=== PATIENT | female | born 1955 | race Caucasian/White ===

== ENCOUNTER 2021-04-05 10:11 | Outpatient (CLI) | payer MEDICARE, MEDICAID ==
[~2021-04-05 10:11] MED LIST: ALBU18HF2 PO; ALPR1TAB2 PO; BUDE10.2 IH; ESOM40CA PO; FURO20TA4 PO; PARO30TA73 PO
== END 2021-04-05 23:59 | disposition home or self-care (01) ==
LOC: RT 10:11
PROVIDERS: ATTEND Nurse Practitioner Family
DX: J44.9 Chronic obstructive pulmonary disease, unspecified (principal); Z72.0 Tobacco use
CPT/HCPCS: 94010; 94727; 94729

== ENCOUNTER 2021-07-04 11:40 | Inpatient (IN) | payer BC, MEDICAID ==
[~2021-07-04] VITALS: Ht 154.9 cm; Wt 109.1 kg
[2021-07-04] MEDS ORDERED: acetaminophen 325mg tablet PO STA (12:09)
[2021-07-04 13:09] LABS: BASOPHILS % (AUTO) 0.4 % (0-1); EOSINOPHILS % (AUTO) 0.1 % (0-6); HEMATOCRIT 41.7 % (35.0-45.0); HEMOGLOBIN 14.1 g/dl (12.0-16.0); LYMPHOCYTES # (AUTO) 1.4 X10'3 (1.1-4.8); LYMPHOCYTES % (AUTO) 12.6 % (21-51); MEAN CORPUSCULAR HGB CONC 33.9 g/dL (33.0-36.5); MEAN CORPUSCULAR VOLUME 82.6 FL (78-98); MEAN PLATELET VOLUME 7.7 FL (7.4-10.4); MONOCYTES # (AUTO) 1.4 X10'3 (0-0.9); MONOCYTES % (AUTO) 13.1 % (2-12); NEUTROPHILS # (AUTO) 8.1 X10'3 (1.8-7.7); NEUTROPHILS % (AUTO) 73.8 % (42-75); PLATELET COUNT 336 X10'3 (140-440); RED BLOOD COUNT 5.04 X10'6 (4.20-5.60); RED CELL DISTRIBUTION WIDTH 15.2 % (11.5-14.5); WHITE BLOOD COUNT 10.9 X10'3 (4.5-11.0)
[2021-07-04 13:10] LABS: ALANINE AMINOTRANSFERASE 27 U/L (12-78); ALBUMIN 2.9 G/DL (3.4-5.0); ALBUMIN/GLOBULIN RATIO 0.5 (1.1-1.5); ALKALINE PHOSPHATASE 113 IU/L (46-116); ANION GAP 11 (8-16); ASPARTATE AMINO TRANSFERASE 23 U/L (10-37); BILIRUBIN,TOTAL 0.9 MG/DL (0.1-1.0); BLOOD UREA NITROGEN 12 MG/DL (7-18); BUN/CREATININE RATIO 12.2 (6.6-38.0); CALCIUM 8.8 MG/DL (8.5-10.1); CHLORIDE 102 MMOL/L (99-107); CREATININE 0.98 MG/DL (0.40-0.90); GLUCOSE 122 MG/DL (70-104); POTASSIUM 3.5 MMOL/L (3.5-5.1); SODIUM 138 MMOL/L (135-145); TOTAL CARBON DIOXIDE 25.5 MMOL/L (24-32); TOTAL PROTEIN 8.8 G/DL (6.4-8.2); eGFR 57 ML/MIN
[2021-07-04] MEDS ORDERED: azithromycin/NS 500mg/250ml 250 ML IV ONE (13:25)
[2021-07-04] MEDS ORDERED: dexamethasone sod phosphate 10mg/ml inj IV STA (13:25)
[2021-07-04] MEDS ORDERED: CefTRIAXone 2gm/D5W 50ml BAG 50 ML IV ONE (13:25)
[2021-07-04] MEDS ORDERED: iohexol 350MG/ML 100ml bottle IV ONE (13:30)
[2021-07-04] MEDS ORDERED: normal saline 1000ML IV soln IVB ONE (14:35)
[2021-07-04] MEDS ORDERED: ipratropium/albuterol 3ml nebule NEB ONE (14:50)
[2021-07-04] MEDS ORDERED: methylPREDNISolone sod succ 125mg/2ml vial IV ONE (14:50)
[2021-07-04] MEDS ORDERED: ipratropium/albuterol 3ml nebule NEB PRN (15:05)
[2021-07-04] MEDS ORDERED: acetaminophen 325mg tablet PO PRN ×2 (15:05)
[2021-07-04] MEDS ORDERED: mag hydrox/Alum hydrox/simeth 30ml oral suspension PO PRN (15:05)
[2021-07-04] MEDS ORDERED: magnesium 2GM in 50ml NS 50 ML IV PRN (15:05)
[2021-07-04] MEDS ORDERED: potassium Cl 40MEQ/1/2NS 520ml 520 ML IV PRN ×2 (15:05)
[2021-07-04] MEDS ORDERED: ondansetron/PF 4mg/2ml inj IV PRN (15:05)
[2021-07-04] MEDS ORDERED: potassium Cl 20 mEq SR tablet PO PRN (15:05)
[2021-07-04] MEDS ORDERED: magnesium Cl slow-release 64mg tablet PO PRN (15:05)
[2021-07-04] MEDS ORDERED: magnesium hydroxide 30ml (MOM) UD suspension PO PRN (15:05)
[2021-07-04] MEDS ORDERED: magnesium 4gm in 100ml NS 100 ML IV PRN (15:05)
[2021-07-04] MEDS ORDERED: PARO30TA4 PO (15:11)
[2021-07-04] MEDS ORDERED: ALPR1TAB7 PO (15:11)
[2021-07-04] MEDS: normal saline 1000ml 1,000 ML IV SCH (15:15)
[2021-07-04] MEDS ORDERED: ALBUTEROL INHALER 1 PUFF/90 MCG INHALER IH ONE (16:00)
--- NOTE | 2021-07-04 18:30 | NUR ---
ASSUMED CARE OF PT. PT SLEEPING. EASILY AWAKENS WHEN I SPEAK TO HER.
[2021-07-04] MEDS: ipratropium/albuterol 3ml nebule NEB SCH ×2 (19:45→22:49)
--- NOTE | 2021-07-04 19:49 | NUR ---
RT AT BEDSIDE GIVING PT BREATHING TX
[2021-07-04] MEDS: methylPREDNISolone sod succ 125mg/2ml vial IV SCH (19:54)
[2021-07-04] MEDS: docusate sod 100mg capsule PO SCH (19:58)
[2021-07-04] MEDS: K and/or MAG REPLACEMENT MC SCH (19:59)
--- NOTE | 2021-07-04 20:00 | NUR ---
PT EATING DINNER AND REQUESTS ICE FOR HER WATER
[2021-07-04] MEDS ORDERED: temazepam 15mg capsule PO PRN (21:00)
--- NOTE | 2021-07-04 22:45 | NUR ---
RT AT BEDSIDE GIVING PT BREATHING TX
[2021-07-05] MEDS: normal saline 1000ml 1,000 ML IV SCH ×2 (01:06→11:05)
--- NOTE | 2021-07-05 01:08 | NUR ---
NOTICED SUDDEN ONSET INCREASE IN HEART RATE TO 155. SUSPICIOUS FOR AFIB W/ RVR. ORDERED EKG STAT. PAGED DR MILLER. PT WAS SLEEPING WHEN HEART RATE SUDDENLY INCREASED. WOKE PT UP, PT SPOKE TO ME COHERENTLY. HEART RATE REMAINS ABOVE 140S. BP STABLE.
--- NOTE | 2021-07-05 01:10 | NUR ---
SPOKE TO DR MILLER CONCERNING PT'S SUDDEN CHANGE IN HEART RATE. EKG IS COMPLETED. DR MILLER STATED THAT "THERE IS NO REASON TO BE CONCERNED". DR TSRINGER HAS REVIEWED PT'S NEW EKG. ORDERED A LITER FLUID BOLUS.
--- NOTE | 2021-07-05 01:18 | NUR ---
PT'S RATE IS BACK TO NSR RANGING IN 70-80S. FEW RUNS OF PVCS NOTED. PT HAS NO COMPLAINTS.
[2021-07-05] MEDS ORDERED: normal saline 1000ml 1,000 ML IV ONE (01:25)
[2021-07-05 01:44] LABS: BASOPHILS % (AUTO) 0.1 % (0-1); EOSINOPHILS % (AUTO) 0 % (0-6); HEMATOCRIT 37.1 % (35.0-45.0); HEMOGLOBIN 12.6 g/dl (12.0-16.0); LYMPHOCYTES # (AUTO) 0.9 X10'3 (1.1-4.8); LYMPHOCYTES % (AUTO) 10.9 % (21-51); MEAN CORPUSCULAR HEMOGLOBIN 27.8 PG (27.0-31.0); MEAN CORPUSCULAR HGB CONC 33.9 g/dL (33.0-36.5); MEAN CORPUSCULAR VOLUME 81.9 FL (78-98); MEAN PLATELET VOLUME 7.7 FL (7.4-10.4); MONOCYTES # (AUTO) 0.3 X10'3 (0-0.9); MONOCYTES % (AUTO) 4.4 % (2-12); NEUTROPHILS # (AUTO) 6.6 X10'3 (1.8-7.7); NEUTROPHILS % (AUTO) 84.6 % (42-75); PLATELET COUNT 300 X10'3 (140-440); RED BLOOD COUNT 4.53 X10'6 (4.20-5.60); RED CELL DISTRIBUTION WIDTH 15.5 % (11.5-14.5); WHITE BLOOD COUNT 7.9 X10'3 (4.5-11.0)
[2021-07-05 01:58] LABS: ALANINE AMINOTRANSFERASE 27 U/L (12-78); ALBUMIN 2.3 G/DL (3.4-5.0); ALBUMIN/GLOBULIN RATIO 0.4 (1.1-1.5); ALKALINE PHOSPHATASE 95 IU/L (46-116); ANION GAP 8 (8-16); ASPARTATE AMINO TRANSFERASE 20 U/L (10-37); BILIRUBIN,TOTAL 0.3 MG/DL (0.1-1.0); BLOOD UREA NITROGEN 14 MG/DL (7-18); BUN/CREATININE RATIO 16.7 (6.6-38.0); CALCIUM 8.4 MG/DL (8.5-10.1); CHLORIDE 107 MMOL/L (99-107); CREATININE 0.84 MG/DL (0.40-0.90); GLUCOSE 163 MG/DL (70-104); POTASSIUM 3.4 MMOL/L (3.5-5.1); SODIUM 140 MMOL/L (135-145); TOTAL CARBON DIOXIDE 24.8 MMOL/L (24-32); TOTAL PROTEIN 7.8 G/DL (6.4-8.2); eGFR 68 ML/MIN
[2021-07-05 02:01] LABS: MAGNESIUM 2.1 MG/DL (1.5-2.4)
[2021-07-05] MEDS: methylPREDNISolone sod succ 125mg/2ml vial IV SCH ×4 (02:48→21:17)
--- NOTE | 2021-07-05 05:57 | NUR ---
PT IS HAVING ANOTHER RUN OF RAPID HEART RATE. ORDERED EKG STAT. DR ANGEL HAS REVIEWED EKG.
--- NOTE | 2021-07-05 06:01 | NUR ---
HEART RATE IS NSR AGAIN.
--- NOTE | 2021-07-05 07:00 | NUR ---
Patient in room ED 16. I have received report from HELEN Coyle and had the opportunity to ask questions and assume patient care.
--- NOTE | 2021-07-05 07:19 | NUR ---
Pt arrived to surgical floor at 0706 via gurney, with 2 bags of belongings, cell phone, pharmacy coordinator, and travel coffee mug. Call light within reach.
[2021-07-05 08:00] VITALS: BP 134/80
[2021-07-05] MEDS ORDERED: PARoxetine 30mg tablet PO SCH (08:00)
[2021-07-05] MEDS: K and/or MAG REPLACEMENT MC SCH ×2 (08:00→20:00)
[2021-07-05] MEDS: CefTRIAXone/D5W-Rocephin 1gm 50 ML IV SCH (08:58)
[2021-07-05] MEDS: docusate sod 100mg capsule PO SCH ×2 (08:58→21:18)
[2021-07-05] MEDS: enoxaparin 40mg/0.4ml syringe SUBCUT SCH (08:58)
[2021-07-05] MEDS: PARoxetine 10mg tablet PO SCH (08:59)
[2021-07-05] MEDS: azithromycin/NS 500mg/250ml 250 ML IV SCH (10:30)
[2021-07-05] MEDS: benzonatate 100mg capsule PO PRN ×2 (10:38→17:42)
[2021-07-05 12:00] VITALS: BP 146/75
[2021-07-05] MEDS: ipratropium/albuterol 3ml nebule NEB SCH ×5 (12:43→23:39)
[2021-07-05] MEDS: HYDROcodone/acetaminophen 5mg/325mg tablet PO PRN (15:15)
[2021-07-05 18:00] VITALS: BP 140/78
--- NOTE | 2021-07-05 18:23 | NUR ---
Problems reprioritized. Patient report given, questions answered & plan of care reviewed with HELEN Gray.
[2021-07-05] MEDS: potassium Cl 20 mEq SR tablet PO PRN (21:18)
[2021-07-05] MEDS: lactobacillus rhamnosus 10,000 MMU CELLS/CAPSULE PO SCH (21:18)
[2021-07-05] MEDS: ALPRAZolam 0.5mg tablet PO PRN (21:24)
[2021-07-05] MEDS ORDERED: morphine 2 MG/ML inj. syringe IV ONE (22:50)
[2021-07-05] MEDS ORDERED: HYDROmorphone inj. 0.5 MG/0.5 ML DISP.SYRIN IV ONE (22:55)
[2021-07-05] MEDS ORDERED: acetaminophen w/codeine (30MG) #3 tablet PO PRN (23:10)
[2021-07-05] MEDS: guaiFENesin 200 MG/10 ML oral syrup UD cup PO PRN (23:24)
[2021-07-05 23:33] VITALS: BP 131/67
[2021-07-06] MEDS ORDERED: LORazepam 1 MG tablet PO PRN (00:15)
[2021-07-06] MEDS: methylPREDNISolone sod succ 125mg/2ml vial IV SCH ×4 (02:10→20:48)
[2021-07-06] MEDS: benzonatate 100mg capsule PO PRN ×3 (02:11→20:51)
[2021-07-06] MEDS: potassium Cl 20 mEq SR tablet PO PRN (02:11)
[2021-07-06 06:27] LABS: BASOPHILS % (AUTO) 0.1 % (0-1); EOSINOPHILS % (AUTO) 0 % (0-6); HEMATOCRIT 37.6 % (35.0-45.0); HEMOGLOBIN 12.4 g/dl (12.0-16.0); LYMPHOCYTES % (AUTO) 6.9 % (21-51); MEAN CORPUSCULAR HEMOGLOBIN 27.3 PG (27.0-31.0); MEAN CORPUSCULAR HGB CONC 33.1 g/dL (33.0-36.5); MEAN CORPUSCULAR VOLUME 82.6 FL (78-98); MONOCYTES # (AUTO) 0.7 X10'3 (0-0.9); MONOCYTES % (AUTO) 4.6 % (2-12); NEUTROPHILS % (AUTO) 88.4 % (42-75); PLATELET COUNT 362 X10'3 (140-440); RED BLOOD COUNT 4.55 X10'6 (4.20-5.60); RED CELL DISTRIBUTION WIDTH 15.4 % (11.5-14.5); WHITE BLOOD COUNT 14.7 X10'3 (4.5-11.0)
--- NOTE | 2021-07-06 06:32 | NUR ---
Problems reprioritized. Patient report given, questions answered & plan of care reviewed with Carissa.
[2021-07-06 06:54] LABS: ALANINE AMINOTRANSFERASE 26 U/L (12-78); ALBUMIN 2.5 G/DL (3.4-5.0); ALBUMIN/GLOBULIN RATIO 0.5 (1.1-1.5); ALKALINE PHOSPHATASE 112 IU/L (46-116); ANION GAP 11 (8-16); ASPARTATE AMINO TRANSFERASE 23 U/L (10-37); BILIRUBIN,TOTAL 0.2 MG/DL (0.1-1.0); BLOOD UREA NITROGEN 25 MG/DL (7-18); BUN/CREATININE RATIO 26.9 (6.6-38.0); CALCIUM 8.9 MG/DL (8.5-10.1); CHLORIDE 107 MMOL/L (99-107); CREATININE 0.93 MG/DL (0.40-0.90); GLUCOSE 152 MG/DL (70-104); MAGNESIUM 2.3 MG/DL (1.5-2.4); SODIUM 143 MMOL/L (135-145); TOTAL CARBON DIOXIDE 25.2 MMOL/L (24-32); TOTAL PROTEIN 7.7 G/DL (6.4-8.2); eGFR 61 ML/MIN
[2021-07-06 07:00] VITALS: BP 152/86
[2021-07-06] MEDS: ipratropium/albuterol 3ml nebule NEB SCH ×4 (07:00→19:00)
--- NOTE | 2021-07-06 07:01 | NUR ---
Student documentation: I have reviewed and agree with all interventions, assessments performed and documented by Martha, Student RN.
--- NOTE | 2021-07-06 07:03 | NUR ---
Problems reprioritized. Patient report given, questions answered & plan of care reviewed with HELEN Ferrer.
[2021-07-06] MEDS: K and/or MAG REPLACEMENT MC SCH ×2 (08:00→19:56)
[2021-07-06] MEDS: CefTRIAXone/D5W-Rocephin 1gm 50 ML IV SCH (08:08)
--- NOTE | 2021-07-06 09:13 | NUR ---
morning svn refused. pt wanted to sleep. no sob observed
[2021-07-06] MEDS: azithromycin/NS 500mg/250ml 250 ML IV SCH (10:11)
[2021-07-06] MEDS: lactobacillus rhamnosus 10,000 MMU CELLS/CAPSULE PO SCH ×2 (10:12→20:51)
[2021-07-06] MEDS: PARoxetine 10mg tablet PO SCH (10:12)
[2021-07-06] MEDS: docusate sod 100mg capsule PO SCH ×2 (10:12→20:53)
[2021-07-06] MEDS: enoxaparin 40mg/0.4ml syringe SUBCUT SCH (10:25)
[2021-07-06] MEDS: guaiFENesin 200 MG/10 ML oral syrup UD cup PO PRN ×2 (11:34→18:56)
[2021-07-06 12:00] VITALS: BP 143/85
[2021-07-06] MEDS: HYDROcodone/acetaminophen 5mg/325mg tablet PO PRN ×2 (12:17→20:52)
[2021-07-06] MEDS ORDERED: ALBU17AE26 (12:56)
[2021-07-06] MEDS ORDERED: FLU VACC QS2021-22(6MOS UP)/PF 60 MCG/0.5 ML SYRINGE IM ONE (13:35)
[2021-07-06] MEDS ORDERED: pneumococcal 23-VAL P-sac vacc 25 mcg/0.5ml vial IMVAC ONE (13:35)
--- NOTE | 2021-07-06 18:43 | NUR ---
Problems reprioritized. Patient report given, questions answered & plan of care reviewed with HELEN Kang.
--- NOTE | 2021-07-06 18:45 | NUR ---
Patient in room PRITESH 360. I have received report from GINA CERVANTES and had the opportunity to ask questions and assume patient care.
[2021-07-06 20:00] VITALS: BP 142/86
[2021-07-06] MEDS: ALPRAZolam 0.5mg tablet PO PRN (20:51)
[2021-07-07] VITALS: BP 140/93
[2021-07-07] MEDS: ipratropium/albuterol 3ml nebule NEB SCH ×6 (00:21→23:00)
[2021-07-07] MEDS: methylPREDNISolone sod succ 125mg/2ml vial IV SCH ×4 (02:58→21:27)
[2021-07-07 06:22] LABS: BASOPHILS % (AUTO) 0.1 % (0-1); EOSINOPHILS % (AUTO) 0 % (0-6); HEMOGLOBIN 12.8 g/dl (12.0-16.0); LYMPHOCYTES # (AUTO) 1.4 X10'3 (1.1-4.8); LYMPHOCYTES % (AUTO) 9.7 % (21-51); MEAN CORPUSCULAR HEMOGLOBIN 27.7 PG (27.0-31.0); MEAN CORPUSCULAR HGB CONC 33.6 g/dL (33.0-36.5); MEAN CORPUSCULAR VOLUME 82.3 FL (78-98); MEAN PLATELET VOLUME 7.7 FL (7.4-10.4); MONOCYTES # (AUTO) 0.8 X10'3 (0-0.9); MONOCYTES % (AUTO) 5.8 % (2-12); NEUTROPHILS % (AUTO) 84.4 % (42-75); PLATELET COUNT 371 X10'3 (140-440); RED BLOOD COUNT 4.61 X10'6 (4.20-5.60); RED CELL DISTRIBUTION WIDTH 15.4 % (11.5-14.5); WHITE BLOOD COUNT 14.2 X10'3 (4.5-11.0)
--- NOTE | 2021-07-07 06:31 | NUR ---
Problems reprioritized. Patient report given, questions answered & plan of care reviewed with JAMSHID CERVANTES.
[2021-07-07 06:33] LABS: ALANINE AMINOTRANSFERASE 27 U/L (12-78); ALBUMIN 2.6 G/DL (3.4-5.0); ALBUMIN/GLOBULIN RATIO 0.5 (1.1-1.5); ALKALINE PHOSPHATASE 101 IU/L (46-116); ANION GAP 7 (8-16); ASPARTATE AMINO TRANSFERASE 20 U/L (10-37); BILIRUBIN,TOTAL 0.2 MG/DL (0.1-1.0); BLOOD UREA NITROGEN 27 MG/DL (7-18); BUN/CREATININE RATIO 28.4 (6.6-38.0); CALCIUM 8.6 MG/DL (8.5-10.1); CHLORIDE 107 MMOL/L (99-107); CREATININE 0.95 MG/DL (0.40-0.90); GLUCOSE 133 MG/DL (70-104); MAGNESIUM 2.4 MG/DL (1.5-2.4); POTASSIUM 4.2 MMOL/L (3.5-5.1); SODIUM 140 MMOL/L (135-145); TOTAL CARBON DIOXIDE 26.1 MMOL/L (24-32); TOTAL PROTEIN 7.7 G/DL (6.4-8.2); eGFR 59 ML/MIN
--- NOTE | 2021-07-07 06:42 | NUR ---
Patient in room PRITESH 360B. I have received report from RAMON NAVARRO RN and had the opportunity to ask questions and assume patient care.
[2021-07-07 06:53] LABS: TOTAL CELLS COUNTED 100
[2021-07-07 06:54] LABS: ANISOCYTOSIS 1+; MICROCYTOSIS 1+; PLATELET ESTIMATE NORMAL; POIKILOCYTOSIS FEW
[2021-07-07 07:00] VITALS: BP 176/105
[2021-07-07] MEDS: azithromycin/NS 500mg/250ml 250 ML IV SCH (07:35)
[2021-07-07] MEDS: enoxaparin 40mg/0.4ml syringe SUBCUT SCH (07:36)
[2021-07-07] MEDS: HYDROcodone/acetaminophen 10/325mg tab PO PRN ×2 (07:55→21:27)
[2021-07-07] MEDS: lactobacillus rhamnosus 10,000 MMU CELLS/CAPSULE PO SCH ×2 (07:55→21:26)
[2021-07-07] MEDS: docusate sod 100mg capsule PO SCH ×2 (07:55→21:26)
[2021-07-07] MEDS: PARoxetine 10mg tablet PO SCH (07:55)
[2021-07-07 08:00] VITALS: BP 176/105
[2021-07-07] MEDS: K and/or MAG REPLACEMENT MC SCH ×2 (08:00→20:00)
[2021-07-07] MEDS: benzonatate 100mg capsule PO PRN ×2 (08:02→21:28)
[2021-07-07] MEDS: guaiFENesin 200 MG/10 ML oral syrup UD cup PO PRN (08:14)
[2021-07-07 09:42] VITALS: BP 164/98
[2021-07-07] MEDS ORDERED: pneumococcal 23-VAL P-sac vacc 25 mcg/0.5ml vial IMVAC ONE (10:00)
[2021-07-07] MEDS ORDERED: FLU VACC QS2021-22(6MOS UP)/PF 60 MCG/0.5 ML SYRINGE IM ONE (10:00)
[2021-07-07] MEDS: CefTRIAXone/D5W-Rocephin 1gm 50 ML IV SCH (10:13)
[2021-07-07 11:00] VITALS: BP 151/92
--- NOTE | 2021-07-07 19:23 | NUR ---
Problems reprioritized. Patient report given, questions answered & plan of care reviewed with HELEN MEDINA.
[2021-07-07] MEDS: guaiFENesin ER 600mg tablet PO SCH (21:26)
[2021-07-07] MEDS: ALPRAZolam 0.5mg tablet PO PRN (21:27)
[2021-07-08] MEDS: methylPREDNISolone sod succ 125mg/2ml vial IV SCH ×3 (01:50→13:28)
--- NOTE | 2021-07-08 06:25 | NUR ---
I have received report from NOC shift RN and had the opportunity to ask questions and assume patient care.
[2021-07-08 06:39] LABS: BASOPHILS % (AUTO) 0.1 % (0-1); EOSINOPHILS % (AUTO) 0 % (0-6); HEMOGLOBIN 13.1 g/dl (12.0-16.0); LYMPHOCYTES # (AUTO) 1.3 X10'3 (1.1-4.8); LYMPHOCYTES % (AUTO) 9.5 % (21-51); MEAN CORPUSCULAR HEMOGLOBIN 27.7 PG (27.0-31.0); MEAN CORPUSCULAR HGB CONC 33.7 g/dL (33.0-36.5); MEAN CORPUSCULAR VOLUME 82.2 FL (78-98); MEAN PLATELET VOLUME 7.7 FL (7.4-10.4); MONOCYTES # (AUTO) 0.4 X10'3 (0-0.9); MONOCYTES % (AUTO) 3.3 % (2-12); NEUTROPHILS # (AUTO) 11.6 X10'3 (1.8-7.7); NEUTROPHILS % (AUTO) 87.1 % (42-75); PLATELET COUNT 370 X10'3 (140-440); RED BLOOD COUNT 4.74 X10'6 (4.20-5.60); RED CELL DISTRIBUTION WIDTH 15.3 % (11.5-14.5); WHITE BLOOD COUNT 13.4 X10'3 (4.5-11.0)
--- NOTE | 2021-07-08 06:40 | NUR ---
Patient in room PRITESH 360. I have received report from Derrick CERVANTES and had the opportunity to ask questions and assume patient care.
[2021-07-08 06:51] LABS: ANION GAP 8 (8-16); BLOOD UREA NITROGEN 26 MG/DL (7-18); CALCIUM 8.4 MG/DL (8.5-10.1); CHLORIDE 106 MMOL/L (99-107); CREATININE 0.93 MG/DL (0.40-0.90); GLUCOSE 147 MG/DL (70-104); MAGNESIUM 2.4 MG/DL (1.5-2.4); POTASSIUM 4.5 MMOL/L (3.5-5.1); SODIUM 142 MMOL/L (135-145); TOTAL CARBON DIOXIDE 28.4 MMOL/L (24-32); eGFR 61 ML/MIN
[2021-07-08 06:52] LABS: ALANINE AMINOTRANSFERASE 59 U/L (12-78); ALBUMIN 2.6 G/DL (3.4-5.0); ALBUMIN/GLOBULIN RATIO 0.5 (1.1-1.5); ALKALINE PHOSPHATASE 94 IU/L (46-116); ASPARTATE AMINO TRANSFERASE 44 U/L (10-37); BILIRUBIN,TOTAL 0.5 MG/DL (0.1-1.0); TOTAL PROTEIN 7.4 G/DL (6.4-8.2)
[2021-07-08 07:12] LABS: TOTAL CELLS COUNTED 100
[2021-07-08 07:14] LABS: ACANTHOCYTES FEW; BURR CELLS FEW; ELLIPTOCYTES FEW; PLATELET ESTIMATE NORMAL; SCHISTOCYTES FEW; TEAR DROP CELLS FEW
[2021-07-08] MEDS: CefTRIAXone/D5W-Rocephin 1gm 50 ML IV SCH (07:27)
[2021-07-08] MEDS: K and/or MAG REPLACEMENT MC SCH (07:38)
[2021-07-08] MEDS: lactobacillus rhamnosus 10,000 MMU CELLS/CAPSULE PO SCH (07:39)
[2021-07-08] MEDS: docusate sod 100mg capsule PO SCH (07:39)
[2021-07-08] MEDS: guaiFENesin ER 600mg tablet PO SCH (07:39)
[2021-07-08] MEDS: enoxaparin 40mg/0.4ml syringe SUBCUT SCH (07:47)
[2021-07-08] MEDS: PARoxetine 10mg tablet PO SCH (07:47)
[2021-07-08] MEDS: benzonatate 100mg capsule PO PRN (07:47)
[2021-07-08 08:00] VITALS: BP 160/92
[2021-07-08] MEDS: azithromycin/NS 500mg/250ml 250 ML IV SCH (08:19)
[2021-07-08] MEDS: ipratropium/albuterol 3ml nebule NEB SCH ×3 (08:50→15:00)
[2021-07-08] MEDS ORDERED: pneumococcal 23-VAL P-sac vacc 25 mcg/0.5ml vial IMVAC ONE (09:00)
[2021-07-08] MEDS ORDERED: FLU VACC QS2021-22(6MOS UP)/PF 60 MCG/0.5 ML SYRINGE IM ONE (09:00)
[2021-07-08] MEDS: HYDROcodone/acetaminophen 10/325mg tab PO PRN (10:06)
[2021-07-08 11:00] VITALS: BP 143/78
--- NOTE | 2021-07-08 12:00 | NUR ---
Initial: Pt admitted w/ increasing SOB and PNA w/ acute respiratory failure per EMR. Pt still noted to be SOB at times. Currently on Regular diet w/ variable intake, avg 42% x 10 meals on Regular diet partially meeting needs. Will provide Smoothies BID BD for additional calories. LBM 07/03 receiving routine colace. Will continue to monitor. Recs: 1. Continue Regular diet as tolerated 2. Smoothies BID BD 3. Bowel care per rx 4. Scaled wt this admit, subsequent weekly wt Addendum: 07/08/21 at [address] Amended: Links added.
[2021-07-08] MEDS ORDERED: LEVO500T90 PO (15:18)
[2021-07-08] MEDS ORDERED: GUAI600T45 PO (15:18)
[2021-07-08] MEDS ORDERED: PRED10TA PO (15:18)
--- NOTE | 2021-07-08 16:58 | NUR ---
Pt states she had a bowel movement this am Addendum: 07/08/21 at 1659 by FILI ALVAREZ STUDENT RUBIN Amended: Links added.
--- NOTE | 2021-07-08 17:25 | NUR ---
Student documentation: I have reviewed all interventions, assessments performed and documented by Mike AQUINO from [facility]. Student Medication Administration: For all medication-passes in the time frame from 0244-4348, all medication were reviewed, dispensed, administered and documented per hospital policy by Mike AQUINO from [facility]. All heparin and Lovenox was approved and verified by primary RN to give.
--- NOTE | 2021-07-08 17:29 | NUR ---
Pt discharged to home in stable condition with . All education completed with verbal acknowledgement from patient. Patient knows to sisal picker medications from [facility] and how to continue home meds. Alert and oriented x4, patient with IS on discharge. IV removed with cannula intact. All belongings sent home with patient.
== END 2021-07-08 17:27 | disposition home or self-care (01) | DRG 193 ==
LOC: ER 11:41 → ED HOLD 15:10 → SUR 3N 07-05 07:20
PROVIDERS: ADMIT Family Medicine; ATTEND Family Medicine
PROC: B32T1ZZ Computerized Tomography (CT Scan) of Left Pulmonary Artery using Low Osmolar Contrast (ICD-10-PCS; 2021-07-04)
PROC: B3201ZZ Computerized Tomography (CT Scan) of Thoracic Aorta using Low Osmolar Contrast (ICD-10-PCS; 2021-07-04)
PROC: B32S1ZZ Computerized Tomography (CT Scan) of Right Pulmonary Artery using Low Osmolar Contrast (ICD-10-PCS; 2021-07-04)
PROC: 3E0234Z Introduction of Serum, Toxoid and Vaccine into Muscle, Percutaneous Approach (ICD-10-PCS; principal; 2021-07-08)
PROC: 3E02340 Introduction of Influenza Vaccine into Muscle, Percutaneous Approach (ICD-10-PCS; 2021-07-08)
DX: J18.9 Pneumonia, unspecified organism (principal); J96.21 Acute and chronic respiratory failure with hypoxia; J44.0 Chronic obstructive pulmonary disease with (acute) lower respiratory infection; J44.1 Chronic obstructive pulmonary disease with (acute) exacerbation; F17.210 Nicotine dependence, cigarettes, uncomplicated; Z20.822 Contact with and (suspected) exposure to COVID-19; B19.20 Unspecified viral hepatitis C without hepatic coma; F12.90 Cannabis use, unspecified, uncomplicated; F32.A Depression, unspecified; F41.9 Anxiety disorder, unspecified; E87.6 Hypokalemia; G89.29 Other chronic pain; K21.9 Gastro-esophageal reflux disease without esophagitis; M19.90 Unspecified osteoarthritis, unspecified site; M54.9 Dorsalgia, unspecified; Z80.0 Family history of malignant neoplasm of digestive organs; Z85.41 Personal history of malignant neoplasm of cervix uteri; Z87.19 Personal history of other diseases of the digestive system; Z90.711 Acquired absence of uterus with remaining cervical stump; Z23 Encounter for immunization; Z88.8 Allergy status to other drugs, medicaments and biological substances
CPT/HCPCS: 36415; 71045; 71275; 80053; 83605; 83735; 83880; 84145; 84484; 85007; 85025; 85379; 86140; 87040; 87081; 87635; 90732; 93005; 94640; 94760; 96368; 96374; 96375; 97161; 97530; 99285; C9803; G0378; J0456; J0696; J1100; J1650; J2930; J7030; Q9967

== ENCOUNTER 2023-07-04 09:56 | Inpatient (IN) | payer MEDICARE, MEDICAID ==
[~2023-07-04] VITALS: Ht 154.9 cm; Wt 100.0 kg
[~2023-07-04 09:56] MED LIST changes: -ALBU18HF2 PO; -ALPR1TAB2 PO; +ALPR1TAB7 PO; -BUDE10.2 IH; -ESOM40CA PO; -FURO20TA4 PO; +GUAI600T45 PO; +PARO30TA4 PO; -PARO30TA73 PO; +PRED10TA PO
--- NOTE | 2023-07-04 10:15 | NUR ---
1015 Working on starting Iv. 1020 crash cart brought to bedside. 1023 MD at bedside. 1026 Iv started and zoll hooked up to patient. pads placed on patient. 1026 No new onset sob.
--- NOTE | 2023-07-04 10:20 | NUR ---
EKG SHOWS PT HR 165 POSSIBLE SVT
--- NOTE | 2023-07-04 10:30 | NUR ---
Lab called. Nurse unable to draw blood from IV start.
[2023-07-04] MEDS ORDERED: normal saline 1000ML IV soln IVB ONE (10:35)
[2023-07-04] MEDS ORDERED: magnesium 2GM in 50ml NS 50 ML IV ONE (10:35)
[2023-07-04] MEDS ORDERED: diltiazem 5mg/ml 5ml inj. IV ONE ×5 (10:45→13:50)
[2023-07-04] MEDS ORDERED: diltiazem 30mg tablet PO ONE (10:55)
--- NOTE | 2023-07-04 10:59 | NUR ---
Plebotimist at bedside.
--- NOTE | 2023-07-04 11:08 | NUR ---
Spoke with Dr. Meyers, non admin 15mg cardizem. Will put new order in for 25mg of cardizem.
--- NOTE | 2023-07-04 11:10 | NUR ---
Per Dr. Reynolds's push 25mg cardizem slow and stop if HR goes below 70BPM.
--- NOTE | 2023-07-04 11:30 | NUR ---
Spoke with Dr. Meyers after giving 25 mg of cardizem. HR dropped briefly to 88, stayed in the low 100's for 2 minutes and then went back up to 145BPM. Orders to start cardizem drip.
[2023-07-04] MEDS ORDERED: diltiazem-NS 100mg/100ml 100 ML IV SCH (11:35)
--- NOTE | 2023-07-04 11:35 | NUR ---
Spoke with MD. Do not give PO maria fernanda.
[2023-07-04] MEDS ORDERED: morphine 4 MG/ML inj SYRINge IV ONE (12:05)
[2023-07-04] MEDS ORDERED: normal saline 1000ml 1,000 ML IV ONE (12:05)
[2023-07-04] MEDS ORDERED: diltiazem-NS 100mg/100ml 100 ML IV ONE (12:50)
[2023-07-04 12:53] LABS: ALANINE AMINOTRANSFERASE 38 U/L (12-78); ALBUMIN 2.6 G/DL (3.4-5.0); ALBUMIN/GLOBULIN RATIO 0.5 (1.1-1.5); ALKALINE PHOSPHATASE 125 IU/L (46-116); ANION GAP 14 (8-16); ASPARTATE AMINO TRANSFERASE 49 U/L (10-37); BILIRUBIN,TOTAL 1.9 MG/DL (0.1-1.0); BLOOD UREA NITROGEN 13 MG/DL (7-18); BUN/CREATININE RATIO 11.4 (10.0-20.0); CALCIUM 8.9 MG/DL (8.5-10.1); CHLORIDE 95 MMOL/L (99-107); CREATININE 1.14 MG/DL (0.40-0.90); GLUCOSE 97 MG/DL (70-104); POTASSIUM 3.2 MMOL/L (3.5-5.1); SODIUM 131 MMOL/L (135-145); TOTAL CARBON DIOXIDE 22.1 MMOL/L (24-32); TOTAL PROTEIN 8.3 G/DL (6.4-8.2); eCRCL 36 ML/MIN; eGFR 48 ML/MIN
[2023-07-04] MEDS ORDERED: diltiazem 30mg tablet PO SCH (13:00)
[2023-07-04] MEDS ORDERED: potassium Cl 40MEQ/1/2NS 520ml 520 ML IV ONE (13:00)
[2023-07-04 13:02] LABS: PRO BRAIN NATRIURETIC PEPTIDE 1701 PG/ML (0-125)
[2023-07-04] MEDS ORDERED: morphine 2 MG/ML inj. syringe IV ONE (13:05)
[2023-07-04 13:10] LABS: BASOPHILS % (AUTO) 0.2 % (0-1); EOSINOPHILS % (AUTO) 0 % (0-6); HEMATOCRIT 43.1 % (35.0-45.0); HEMOGLOBIN 14.2 g/dl (12.0-16.0); LYMPHOCYTES # (AUTO) 1.1 X10'3 (1.1-4.8); LYMPHOCYTES % (AUTO) 7.1 % (21-51); MEAN CORPUSCULAR HEMOGLOBIN 27.9 PG (27.0-31.0); MEAN CORPUSCULAR VOLUME 84.6 FL (78-98); MEAN PLATELET VOLUME 8.8 FL (7.4-10.4); MONOCYTES % (AUTO) 6.4 % (2-12); NEUTROPHILS # (AUTO) 13.1 X10'3 (1.8-7.7); NEUTROPHILS % (AUTO) 86.3 % (42-75); PLATELET COUNT 225 X10'3 (140-440); RED BLOOD COUNT 5.09 X10'6 (4.20-5.60); RED CELL DISTRIBUTION WIDTH 15.4 % (11.5-14.5); WHITE BLOOD COUNT 15.1 X10'3 (4.5-11.0)
--- NOTE | 2023-07-04 13:26 | NUR ---
per dr barajas increase dilt gtt to 15mg / hr HR remains in 140's briefly came down to 98 when pat was [address] Dr Walters at bedside discussing tx options
[2023-07-04] MEDS ORDERED: vancomycin/NS 1 GM ADD-VANTAGE 250 ML IV SCH ×2 (14:00→20:00)
[2023-07-04] MEDS ORDERED: amiodarone 150mg/dext, iso-os 100 ML IV ONE (14:20)
[2023-07-04] MEDS ORDERED: potassium Cl 20 mEq SR tablet PO PRN (14:30)
[2023-07-04] MEDS ORDERED: ipratropium/albuterol 3ml nebule NEB PRN ×2 (14:30→15:52)
[2023-07-04] MEDS ORDERED: magnesium Cl slow-release 64mg tablet PO PRN (14:30)
[2023-07-04] MEDS ORDERED: ondansetron/PF 4mg/2ml inj IV PRN (14:30)
[2023-07-04] MEDS ORDERED: magnesium 2GM in 50ml NS 50 ML IV PRN (14:30)
[2023-07-04] MEDS ORDERED: magnesium 4gm in 100ml NS 100 ML IV PRN (14:30)
[2023-07-04] MEDS ORDERED: potassium Cl 40MEQ/1/2NS 520ml 520 ML IV PRN (14:30)
--- NOTE | 2023-07-04 14:44 | NUR ---
called dr coleman to clarify the order of amiodrane and diltazeam ,as per md call dr pena who works with cardiology team ,unable to find the provider phone no,and dr trevino is off the shift ,called pharmacy as per babar pharmacisit she will contact the md and then we can decide whether we shd admin amiodrane or stop diltazeam.
--- NOTE | 2023-07-04 14:50 | NUR ---
babar pharmacist at nurses station along with dr caballero ,as per cancel the cardizeam drip and start the amiodarone drip adriana.
[2023-07-04] MEDS: amiodarone/D5 360MG/200ML BAG 200 ML IV SCH ×2 (15:15→21:15)
--- NOTE | 2023-07-04 15:20 | NUR ---
sbar to primary flor flores.
--- NOTE | 2023-07-04 15:36 | NUR ---
1336 received report from Sabrina CERVANTES assumed care of pt pt heart rate continued to remain in 140's multple orders received to increase dilt gtt by 5mg/hr until reached max of 15 mg/hr no good results noted. IVP order received from Dr Lund to give 35mg ivp dilt completed no good results noted. 1430 amiodarone gtt initiated dilt gtt dc'd by lunch linus Coyle. 1500 unable to admin current iv medications at present time attempting to get 2nd IV without sucess Dr Gladys rios
--- NOTE | 2023-07-04 15:44 | NUR ---
spoke with DR Graham new orders received Picc Line place to be ordered provider is aware of medication delays due to lack of PIV access
--- NOTE | 2023-07-04 15:46 | NUR ---
picc line nsg paged by hi engel
[2023-07-04] MEDS ORDERED: NO HOME MEDS (16:14)
--- NOTE | 2023-07-04 17:11 | NUR ---
1700 cardiology md at bedside verbal order to keep mag level greater than 2 and K greater than 4 pharmacy verified vanco infusion compatible at the y with amiodarone
[2023-07-04] MEDS: vancomycin/NS 1 GM ADD-VANTAGE 250 ML IV SCH (18:11)
[2023-07-04 18:50] VITALS: PULSE 144; RESP 22; O2SAT 96
[2023-07-04] MEDS: ipratropium/albuterol 3ml nebule NEB SCH ×2 (18:52→23:00)
[2023-07-04] MEDS: piperacillin/tazo 3.375gm/50ml 50 ML IV SCH (19:30)
[2023-07-04] MEDS: normal saline 1000ml 1,000 ML IV SCH (19:39)
[2023-07-04] MEDS: K and/or MAG REPLACEMENT MC SCH (20:00)
[2023-07-04] MEDS: docusate sod 100mg capsule PO SCH (20:00)
[2023-07-04] MEDS ORDERED: carvedilol 6.25mg tablet PO SCH (20:00)
[2023-07-04 20:28] LABS: MAGNESIUM 2.5 MG/DL (1.5-2.4)
[2023-07-04] MEDS: acetaminophen 325mg tablet PO PRN (21:21)
[2023-07-04] MEDS ORDERED: carvedilol 6.25mg tablet PO ONE (21:35)
--- NOTE | 2023-07-04 22:00 | NUR ---
PT PLACED ON HOSPITAL BED FOR COMFORT, FAMILY AT BEDSIDE.
--- NOTE | 2023-07-04 22:34 | NUR ---
QT INTERVAL NOT REASSESSED ON PREVIOUS SHIFT.
--- NOTE | 2023-07-04 23:22 | NUR ---
MD MCKENZIE CALLED, PT BP 80/47. AWAITING ORDER FOR DOBUTAMINE GTT. AWARE PT DOES NOT HAVE CENTRAL LINE.
[2023-07-04] MEDS ORDERED: albumin (Human) 5% 250ml 500 ML IV ONE (23:30)
[2023-07-04] MEDS ORDERED: digoxin 250mcg/ml 2ml ampule IV ONE (23:35)
[2023-07-04] MEDS ORDERED: LidoCAINE 2% Topical Jelly 11mL syringe TOP ONE (23:35)
[2023-07-04 23:50] VITALS: PULSE 62; RESP 23; O2SAT 96
[2023-07-04 23:52] LABS: BILIRUBIN,URINE SMALL (Neg); CLARITY,URINE SLIGHTLY CLOUDY (Clear); COLOR,URINE YELLOW (Yellow); GLUCOSE, URINE NEGATIVE (Neg); KETONES,URINE 15 mg/dl (Neg); LEUKOCYTE ESTERASE ,URINE NEGATIVE (Neg); NITRITES, URINE NEGATIVE (Neg); OCCULT BLOOD,URINE SMALL (Neg); PH,URINE 5.5 (4.8-8.0); PROTEIN,URINE 100 mg/dl (Neg)
[2023-07-04 23:59] LABS: SQUAMOUS EPITHELIAL CELL,UR MANY /LPF (FEW); UA COLLECTION TYPE FOLEY CATH
[2023-07-05] VITALS (9 sets, daily range): PULSE 64–79; RESP 12–68; O2SAT 96–100
[2023-07-05] LABS: BACTERIA,URINE 3+ /HPF (Neg); RBC,URINE 0-2 /HPF (0-2); WBC,URINE 0-4 /HPF (0-4)
--- NOTE | 2023-07-05 | NUR ---
this RN called Tai LANCE to question digoxin order after discussing starting different gtt for pt's hypotension. Tai LANCE refusing to give answer other than "pt EF 40%". then proceeded to hang up phone on this RN. will consult jerry cardiology on this pt's case.
[2023-07-05 00:02] LABS: RENAL CELLS, URINE FEW /HPF
--- NOTE | 2023-07-05 00:10 | NUR ---
this rn discussed with ERMD about pt's condition, agrees on consulting with aura & holding digoxin. verbal order for 500ml NS bolus.
--- NOTE | 2023-07-05 00:31 | NUR ---
paged jerry to update on pt status & wanting consult on digoxin that Tai LANCE ordered. awaiting call back at this time. holding digoxin per ERMD. pt HR 63, BP 72/46.
[2023-07-05] MEDS ORDERED: normal saline 500ml IV soln 500 ML IV ONE (00:45)
[2023-07-05] MEDS ORDERED: DOPamine 400mg/D5W 250ml 250 ML IV SCH (01:00)
[2023-07-05] MEDS: DOPamine 400mg/D5W 250ml 250 ML IV SCH ×3 (01:10→15:16)
--- NOTE | 2023-07-05 01:23 | NUR ---
STARTING DOPAMINE GTT, HOLDING AMIODARONE GTT, AND NOT ADMIN'ING DIGOXIN PER RALPH. PT HR 60, BP 74/44.
--- NOTE | 2023-07-05 01:40 | NUR ---
RALPH PAGED FOR TITRATION ORDERS.
--- NOTE | 2023-07-05 01:52 | NUR ---
PER RALPH, KEEP DOPAMINE AT CURRENT RATE OF 10 MCG/KG/MIN & GET AN EKG.
[2023-07-05 02:04] LABS: OSMOLALITY 277 MOSM/K (280-300)
[2023-07-05 02:25] LABS: ALBUMIN 1.8 G/DL (3.4-5.0); ANION GAP 14 (8-16); BLOOD UREA NITROGEN 14 MG/DL (7-18); BUN/CREATININE RATIO 11.4 (10.0-20.0); CALCIUM 7.5 MG/DL (8.5-10.1); CHLORIDE 98 MMOL/L (99-107); CREATININE 1.23 MG/DL (0.40-0.90); GLUCOSE 151 MG/DL (70-104); MAGNESIUM 2.1 MG/DL (1.5-2.4); PHOSPHORUS 3.1 MG/DL (2.3-4.5); POTASSIUM 3.2 MMOL/L (3.5-5.1); PRO BRAIN NATRIURETIC PEPTIDE 1327 PG/ML (0-125); SODIUM 130 MMOL/L (135-145); THYROID STIMULATING HORMONE 0.34 ulU/ml (0.34-4.50); TOTAL CARBON DIOXIDE 18.2 MMOL/L (24-32); eCRCL 33 ML/MIN; eGFR 44 ML/MIN
[2023-07-05] MEDS: amiodarone/D5 360MG/200ML BAG 200 ML IV SCH ×2 (02:26→08:28)
[2023-07-05] MEDS: ipratropium/albuterol 3ml nebule NEB SCH ×6 (03:00→23:12)
--- NOTE | 2023-07-05 04:16 | NUR ---
paul LANCE on unit, okay'd keeping dopamine at current rate 10mcg/kg/min despite not meeting SBP goal of 100.
--- NOTE | 2023-07-05 05:00 | NUR ---
COMPATABILITY CHECKED FOR DOPAMINE & VANCOMYCIN, BOTH ARE COMPATIBLE AT Y-SITE PER CLINICAL PHARMACOLOGY [facility] ON [facility].
[2023-07-05] MEDS: vancomycin/NS 1 GM ADD-VANTAGE 250 ML IV SCH ×2 (05:14→16:54)
[2023-07-05] MEDS: potassium Cl 20mEq in NS 1,000 ML IV SCH ×4 (06:20→20:30)
[2023-07-05] MEDS: carvedilol 6.25mg tablet PO SCH ×3 (08:00→20:30)
[2023-07-05] MEDS: K and/or MAG REPLACEMENT MC SCH ×2 (08:00→20:21)
[2023-07-05 09:01] LABS: BASOPHILS # (AUTO) 0.3 X10'3 (0-0.2); BASOPHILS % (AUTO) 1.4 % (0-1); EOSINOPHILS # (AUTO) 0.1 X10'3 (0-0.9); EOSINOPHILS % (AUTO) 0.3 % (0-6); HEMATOCRIT 35.7 % (35.0-45.0); HEMOGLOBIN 11.5 g/dl (12.0-16.0); LYMPHOCYTES # (AUTO) 0.7 X10'3 (1.1-4.8); MEAN CORPUSCULAR HEMOGLOBIN 27.2 PG (27.0-31.0); MEAN CORPUSCULAR HGB CONC 32.1 g/dL (33.0-36.5); MEAN CORPUSCULAR VOLUME 84.5 FL (78-98); MONOCYTES % (AUTO) 5.5 % (2-12); NEUTROPHILS # (AUTO) 16.1 X10'3 (1.8-7.7); NEUTROPHILS % (AUTO) 88.8 % (42-75); PLATELET COUNT 240 X10'3 (140-440); RED BLOOD COUNT 4.22 X10'6 (4.20-5.60); RED CELL DISTRIBUTION WIDTH 15.4 % (11.5-14.5); WHITE BLOOD COUNT 18.1 X10'3 (4.5-11.0)
--- NOTE | 2023-07-05 09:05 | NUR ---
Melvin dale in [facility] - 07/05/23 at 0906 by BARRY GOT LATRICE PERMISSION FROM PT TO SPEAK TO HER DAUGHTER LAILA, UPDATE GIVEN. PHONE NUMBER SHE GAVE ME WAS [phone]
--- NOTE | 2023-07-05 09:07 | NUR ---
GOT VEBAL PERMISSION FROM PT TO SPEAK TO HER DAUGHTER LAILA, UPDATE GIVEN. PHONE NUMBER SHE GAVE ME WAS [phone]
[2023-07-05] MEDS: piperacillin/tazo 3.375gm/50ml 50 ML IV SCH ×3 (09:17→16:21)
[2023-07-05] MEDS: amiodarone 200mg tablet PO SCH ×2 (09:17→20:21)
[2023-07-05] MEDS: docusate sod 100mg capsule PO SCH ×2 (09:17→20:00)
[2023-07-05] MEDS: potassium Cl 20 mEq SR tablet PO PRN ×2 (09:17→20:30)
[2023-07-05 09:31] LABS: BURR CELLS 1+; ELLIPTOCYTES 1+; PLATELET ESTIMATE NORMAL
[2023-07-05] MEDS: acetaminophen 325mg tablet PO PRN ×2 (12:24→19:13)
--- NOTE | 2023-07-05 15:50 | NUR ---
Spoke to Dr. Graham on the phone not too long ago regarding patient's low BP reading SBP 70's to 80's despite dopa arip @ 10 mcg/kg/min and fever episode today. Dr. Graham gave me order to increase dopa drip to 15 mcg/kg.min
[2023-07-05] MEDS ORDERED: normal saline 1000ml 1,000 ML IV ONE (16:05)
[2023-07-05] MEDS ORDERED: ringers solution, lacted 1,000 ML IV ONE ×2 (17:15)
--- NOTE | 2023-07-05 18:30 | NUR ---
Late entry: Patient's peripheral IV on the right hand was tender and swollen. Attempted to out another peripheral IV x 2-3 attempts without success. Unable to give boluses that was ordered as the patient only have 1 peripheral IV on the right upper arm that has Dopa drip and zosyn IV running at 2 different ports.
[2023-07-05] MEDS: normal saline 1000ml 1,000 ML IV SCH (19:58)
[2023-07-05] MEDS: ringers solution, lacted 1,000 ML IV SCH (20:06)
[2023-07-05] MEDS: hydrocortisone sod succ/PF 100mg/2ml inj. IV SCH (20:19)
[2023-07-05] MEDS: pantoprazole 40mg Tablet.DR PO PRN (21:34)
[2023-07-06] VITALS (15 sets, daily range): BP systolic 95–109; BP diastolic 57–65; PULSE 58–78; RESP 13–23; TEMP 97.4–98.1; O2SAT 88–99
[2023-07-06] MEDS: piperacillin/tazo 3.375gm/50ml 50 ML IV SCH ×3 (00:02→16:00)
[2023-07-06] MEDS: ringers solution, lacted 1,000 ML IV SCH ×2 (00:02→07:21)
[2023-07-06] MEDS: DOPamine 400mg/D5W 250ml 250 ML IV SCH (00:07)
--- NOTE | 2023-07-06 00:30 | NUR ---
this RN asked JAHAIRA Eid if he would be willing to place a central or mid line in pt d/t dopamine running through peripheral line for almost 24hrs. JAHAIRA declined, says that pipe line maintenance supervisor can do it in the AM.
[2023-07-06] MEDS: potassium Cl 20mEq in NS 1,000 ML IV SCH ×2 (02:33→08:50)
[2023-07-06] MEDS: hydrocortisone sod succ/PF 100mg/2ml inj. IV SCH ×4 (02:33→20:40)
[2023-07-06] MEDS: normal saline 1000ml 1,000 ML IV SCH ×3 (03:27→20:45)
[2023-07-06] MEDS ORDERED: LORazepam 1 MG tablet PO PRN (03:30)
[2023-07-06] MEDS ORDERED: VANCOMYCIN LEVEL IV ONE (04:30)
[2023-07-06 04:40] LABS: BASOPHILS % (AUTO) 0.2 % (0-1); EOSINOPHILS % (AUTO) 0.1 % (0-6); HEMATOCRIT 36.4 % (35.0-45.0); LYMPHOCYTES # (AUTO) 0.9 X10'3 (1.1-4.8); LYMPHOCYTES % (AUTO) 4.5 % (21-51); MEAN CORPUSCULAR HEMOGLOBIN 27.8 PG (27.0-31.0); MEAN CORPUSCULAR VOLUME 84.3 FL (78-98); MEAN PLATELET VOLUME 8.3 FL (7.4-10.4); MONOCYTES # (AUTO) 0.9 X10'3 (0-0.9); MONOCYTES % (AUTO) 4.1 % (2-12); NEUTROPHILS # (AUTO) 18.7 X10'3 (1.8-7.7); NEUTROPHILS % (AUTO) 91.1 % (42-75); PLATELET COUNT 292 X10'3 (140-440); RED BLOOD COUNT 4.32 X10'6 (4.20-5.60); WHITE BLOOD COUNT 20.6 X10'3 (4.5-11.0)
[2023-07-06 04:43] LABS: ALBUMIN 1.8 G/DL (3.4-5.0); ANION GAP 8 (8-16); BLOOD UREA NITROGEN 17 MG/DL (7-18); BUN/CREATININE RATIO 18.7 (10.0-20.0); CALCIUM 8.2 MG/DL (8.5-10.1); CHLORIDE 104 MMOL/L (99-107); CREATININE 0.91 MG/DL (0.40-0.90); GLUCOSE 153 MG/DL (70-104); MAGNESIUM 2.3 MG/DL (1.5-2.4); SODIUM 133 MMOL/L (135-145); TOTAL CARBON DIOXIDE 21.4 MMOL/L (24-32); VANCOMYCIN,TROUGH 12.5 ug/mL (10.0-20.0); eCRCL 45 ML/MIN; eGFR 62 ML/MIN
[2023-07-06] MEDS: vancomycin/NS 1 GM ADD-VANTAGE 250 ML IV SCH (04:47)
[2023-07-06 05:15] LABS: POTASSIUM 4.8 MMOL/L (3.5-5.1)
[2023-07-06] MEDS: ipratropium/albuterol 3ml nebule NEB SCH ×6 (06:27→23:41)
[2023-07-06] MEDS: K and/or MAG REPLACEMENT MC SCH ×2 (08:00→20:00)
--- NOTE | 2023-07-06 08:35 | NUR ---
UZMA PT IS HAVING HIGH ANXIETY. PT STATES ATIVAN WAS INEFFECTIVE AND IS REQUESTING XANAX 0.5MG PO
[2023-07-06] MEDS ORDERED: ALPRAZolam 0.25mg tablet PO ONE (08:40)
[2023-07-06] MEDS: docusate sod 100mg capsule PO SCH ×2 (08:43→20:41)
[2023-07-06] MEDS: carvedilol 6.25mg tablet PO SCH ×2 (08:43→20:41)
[2023-07-06] MEDS: amiodarone 200mg tablet PO SCH (08:43)
[2023-07-06] MEDS ORDERED: ALPRAZolam 0.5mg tablet PO ONE (08:45)
--- NOTE | 2023-07-06 10:12 | NUR ---
PAGER ID: [phone] MESSAGE: HELEN SHANNON, [facility], [id number]. RE: [id number]. PT. HAS LACTATED RINGERS AND SODIUM CHLORIDE ON EMAR. AM I RUNNING BOTH?
--- NOTE | 2023-07-06 11:24 | NUR ---
PAGER ID: [phone] MESSAGE: HELEN SHANNON, U, 1528. RE: [phone]. PT. WANTS XANAX ADDED BACK ON EMAR? CHEST X-RAY STILL PENDING. ALSO PT HAS 20MEQK+/NS 1000ML BAG ON EMAR AT 150MLS/HR. DO YOU WANT BOTH NS AND K+/NS RUNNING AT THE SAME TIME?
[2023-07-06] MEDS: ALPRAZolam 0.25mg tablet PO PRN (12:44)
--- NOTE | 2023-07-06 16:47 | NUR ---
PT. PULLED OUT EXTENDED PIV. WILL ATTEMPT A PERIPHERAL IV TO HANG ANTIBIOTICS. Addendum: 07/06/23 at 1735 by Randolph Llamas RN TRIED TWO TIMES FOR AN IV AND FAILED. CALLED THE ER FOR IV PLACEMENT. ANTIBIOTICS WILL BE LATE AT THIS TIME. Addendum: 07/06/23 at 1834 by Randolph Llamas RN ER PUT IN IV WITH ULTRASOUND GUIDED . BARELY GOT ONE IN DETENTION OUT BUT WORKS FOR THE ANTIBIOTICS TONIGHT. PT. WILL NEED AN EXTENDED PIV TOMMOROW. NIGHT NURSE NOTIFIED.
[2023-07-06] MEDS: VANCOmycin 1250MG/NS 250ml Bag 250 ML IV SCH (18:14)
[2023-07-06] MEDS: HYDROcodone/acetaminophen 5mg/325mg tablet PO PRN (18:31)
--- NOTE | 2023-07-06 18:35 | NUR ---
Problems reprioritized. Patient report given TO JAMSHID CERVANTES, questions answered & plan of care reviewed with .
--- NOTE | 2023-07-06 22:00 | NUR ---
Pt complained she was not receiving care in a timely matter, nurse had checked on pt multiple times prior to pt's statement. With each interaction pt seemed to be satisfied. Nurse got building and grounds supervisor to talk with pt. Pt had no other complaints and has been resting in bed the rest of the shift.
[2023-07-07] VITALS (17 sets, daily range): BP systolic 107–138; BP diastolic 57–80; PULSE 59–68; RESP 16–21; TEMP 97.6–97.9; O2SAT 91–99
--- NOTE | 2023-07-07 01:00 | NUR ---
Pt refused BP and temperature when taking VS at 0100
--- NOTE | 2023-07-07 01:00 | NUR ---
Pt's IV infiltrated and needs ultrasound for IV placement. Will pass onto day shift nurse as Nurse did not see any good veins to try and place IV.
[2023-07-07] MEDS: hydrocortisone sod succ/PF 100mg/2ml inj. IV SCH ×5 (01:57→20:06)
[2023-07-07] MEDS: piperacillin/tazo 3.375gm/50ml 50 ML IV SCH ×5 (01:59→23:10)
[2023-07-07] MEDS: normal saline 1000ml 1,000 ML IV SCH ×3 (02:09→20:00)
[2023-07-07] MEDS: ipratropium/albuterol 3ml nebule NEB SCH ×6 (04:17→23:09)
[2023-07-07] MEDS: HYDROcodone/acetaminophen 5mg/325mg tablet PO PRN ×2 (05:00→14:18)
[2023-07-07] MEDS: VANCOmycin 1250MG/NS 250ml Bag 250 ML IV SCH ×2 (05:00→20:06)
[2023-07-07 06:24] LABS: BASOPHILS % (AUTO) 0.2 % (0-1); EOSINOPHILS % (AUTO) 0 % (0-6); HEMATOCRIT 33.4 % (35.0-45.0); LYMPHOCYTES % (AUTO) 5.5 % (21-51); MEAN CORPUSCULAR HEMOGLOBIN 27.7 PG (27.0-31.0); MEAN CORPUSCULAR HGB CONC 32.8 g/dL (33.0-36.5); MEAN CORPUSCULAR VOLUME 84.4 FL (78-98); MEAN PLATELET VOLUME 8.3 FL (7.4-10.4); MONOCYTES # (AUTO) 0.8 X10'3 (0-0.9); MONOCYTES % (AUTO) 4.3 % (2-12); NEUTROPHILS # (AUTO) 16.8 X10'3 (1.8-7.7); PLATELET COUNT 328 X10'3 (140-440); RED BLOOD COUNT 3.95 X10'6 (4.20-5.60); RED CELL DISTRIBUTION WIDTH 15.7 % (11.5-14.5); WHITE BLOOD COUNT 18.7 X10'3 (4.5-11.0)
[2023-07-07 06:52] LABS: ALBUMIN 1.8 G/DL (3.4-5.0); ANION GAP 12 (8-16); BLOOD UREA NITROGEN 21 MG/DL (7-18); BUN/CREATININE RATIO 24.1 (10.0-20.0); CALCIUM 8.5 MG/DL (8.5-10.1); CHLORIDE 105 MMOL/L (99-107); CREATININE 0.87 MG/DL (0.40-0.90); GLUCOSE 117 MG/DL (70-104); MAGNESIUM 2.3 MG/DL (1.5-2.4); POTASSIUM 4.2 MMOL/L (3.5-5.1); SODIUM 137 MMOL/L (135-145); TOTAL CARBON DIOXIDE 19.6 MMOL/L (24-32); eCRCL 47 ML/MIN; eGFR 65 ML/MIN
--- NOTE | 2023-07-07 06:52 | NUR ---
Problems reprioritized. Patient report given, questions answered & plan of care reviewed with Leni CERVANTES. Pt stable at shift change.
[2023-07-07] MEDS: K and/or MAG REPLACEMENT MC SCH ×2 (06:59→20:00)
[2023-07-07] MEDS: carvedilol 6.25mg tablet PO SCH ×2 (08:00→20:06)
[2023-07-07] MEDS: amiodarone 200mg tablet PO SCH (08:37)
[2023-07-07] MEDS: docusate sod 100mg capsule PO SCH ×2 (08:37→20:06)
[2023-07-07] MEDS: ALPRAZolam 0.25mg tablet PO PRN ×2 (08:38→14:42)
[2023-07-07] MEDS ORDERED: carVEDilol 3.125mg tablet PO ONE (09:00)
--- NOTE | 2023-07-07 09:02 | NUR ---
Orders received from Dr. Sanchez to give half dose of Coreg 6.25mg now, continue with BID order this evening if patients SBP is greater than 100. Order placed.
[2023-07-07] MEDS: morphine 2 MG/ML inj. syringe IV PRN ×2 (10:59→16:53)
--- NOTE | 2023-07-07 13:48 | NUR ---
Student documentation: I have reviewed interventions, assessments performed and documented by Shira AQUINO of [facility]. Student Medication Administration: For this medication-pass in the time frame of 8076-2194, all medication were reviewed, dispensed, administered and documented per hospital policy by Shira AQUINO of [facility].
--- NOTE | 2023-07-07 14:00 | NUR ---
PRESSURE ULCER EDUCATION: DEFINITION: A pressure ulcer is an area of skin that breaks down when you stay in one position too long. The constant pressure against the skin reduces the blood flow to that area and the affected tissue dies. CAUSES: "Being bedridden or in a wheelchair "Fragile skin "Having a chronic condition, such as diabetes or vascular disease "Inability to move certain parts of your body without assistance "Older age "Incontinence of urine or stool SYMPTOMS: "A reddened area that DOES NOT turn white when pressed on - this can be the beginning of a pressure ulcer "A blister, deep sore or a crater - these can be advanced pressure ulcers FIRST AID: "Relieve the pressure on this area "Keep the area clean and dry "Call your primary doctor if you see any of the above symptoms "DO NOT massage the area "DO NOT use a donut shaped or ring shaped pillow- these actually interfere with the blood flow and cause complications PREVENTION: "Check for pressure ulcers everyday "Change position at least every two hours to relieve pressure "Use items that help relieve pressure- pillows, sheepskin, foam padding, and powders. "Keep skin clean and dry "Eat healthy well balanced meals "Exercise daily IF YOU SEE ANY OF THESE SYMPTOMS WHILE IN THE HOSPITAL - TELL YOUR NURSE IMMEDIATELY. IF YOU SEE ANY OF THESE SYMPTOMS WHILE AT HOME OR HAVE ANY QUESTIONS OR CONCERNS ABOUT PRESSURE ULCERS - CALL YOUR PRIMARY DOCTOR IMMEDIATELY. Addendum: 07/07/23 at 1400 by Pily Farr LVN Amended: Links added.
--- NOTE | 2023-07-07 18:09 | NUR ---
Report given to Kena CERVANTES
--- NOTE | 2023-07-07 18:30 | NUR ---
Patient in room PCU 3027. I have received report from HELEN Farrar and had the opportunity to ask questions and assume patient care.
[2023-07-08] VITALS (18 sets, daily range): BP systolic 135–144; BP diastolic 67–80; PULSE 58–79; RESP 12–25; TEMP 97.1–98.4; O2SAT 92–98
[2023-07-08] MEDS: HYDROcodone/acetaminophen 5mg/325mg tablet PO PRN ×2 (02:06→07:21)
[2023-07-08] MEDS: hydrocortisone sod succ/PF 100mg/2ml inj. IV SCH ×4 (02:07→20:15)
[2023-07-08] MEDS: ipratropium/albuterol 3ml nebule NEB SCH ×6 (02:42→23:00)
[2023-07-08] MEDS: ALPRAZolam 0.25mg tablet PO PRN (02:54)
[2023-07-08] MEDS ORDERED: VANCOMYCIN LEVEL IV ONE (04:30)
[2023-07-08 04:53] LABS: BASOPHILS % (AUTO) 0.1 % (0-1); EOSINOPHILS % (AUTO) 0.1 % (0-6); HEMATOCRIT 31.9 % (35.0-45.0); HEMOGLOBIN 10.5 g/dl (12.0-16.0); LYMPHOCYTES # (AUTO) 0.8 X10'3 (1.1-4.8); LYMPHOCYTES % (AUTO) 6.2 % (21-51); MEAN CORPUSCULAR HEMOGLOBIN 27.8 PG (27.0-31.0); MEAN CORPUSCULAR VOLUME 84.3 FL (78-98); MEAN PLATELET VOLUME 8.2 FL (7.4-10.4); MONOCYTES # (AUTO) 0.8 X10'3 (0-0.9); MONOCYTES % (AUTO) 6.5 % (2-12); NEUTROPHILS # (AUTO) 11.2 X10'3 (1.8-7.7); NEUTROPHILS % (AUTO) 87.1 % (42-75); PLATELET COUNT 401 X10'3 (140-440); RED BLOOD COUNT 3.78 X10'6 (4.20-5.60); RED CELL DISTRIBUTION WIDTH 15.8 % (11.5-14.5); WHITE BLOOD COUNT 12.9 X10'3 (4.5-11.0)
[2023-07-08 05:04] LABS: ALBUMIN 1.9 G/DL (3.4-5.0); ANION GAP 7 (8-16); BLOOD UREA NITROGEN 21 MG/DL (7-18); BUN/CREATININE RATIO 19.4 (10.0-20.0); CALCIUM 7.9 MG/DL (8.5-10.1); CHLORIDE 108 MMOL/L (99-107); CREATININE 1.08 MG/DL (0.40-0.90); GLUCOSE 123 MG/DL (70-104); MAGNESIUM 2.2 MG/DL (1.5-2.4); POTASSIUM 4.1 MMOL/L (3.5-5.1); SODIUM 138 MMOL/L (135-145); TOTAL CARBON DIOXIDE 22.8 MMOL/L (24-32); VANCOMYCIN,TROUGH 21.1 ug/mL (10.0-20.0); eCRCL 38 ML/MIN; eGFR 51 ML/MIN
[2023-07-08] MEDS: VANCOmycin 1250MG/NS 250ml Bag 250 ML IV SCH (05:10)
[2023-07-08] MEDS: normal saline 1000ml 1,000 ML IV SCH ×3 (05:10→19:58)
--- NOTE | 2023-07-08 06:21 | NUR ---
Problems reprioritized. Patient report given, questions answered & plan of care reviewed with HELEN Diane.
--- NOTE | 2023-07-08 06:26 | NUR ---
Patient in room PCU 3027. I have received report from HELEN Escudero and had the opportunity to ask questions and assume patient care.
[2023-07-08] MEDS: amiodarone 200mg tablet PO SCH (07:28)
[2023-07-08] MEDS: piperacillin/tazo 3.375gm/50ml 50 ML IV SCH ×3 (07:28→23:26)
[2023-07-08] MEDS: docusate sod 100mg capsule PO SCH ×2 (07:28→20:15)
[2023-07-08] MEDS: carvedilol 6.25mg tablet PO SCH ×2 (07:30→20:15)
[2023-07-08] MEDS: aspirin 325mg tablet, delayed-release (Ecotrin) PO SCH (07:30)
[2023-07-08] MEDS: K and/or MAG REPLACEMENT MC SCH ×2 (08:00→20:00)
--- NOTE | 2023-07-08 12:22 | NUR ---
patient down to CT.
--- NOTE | 2023-07-08 12:35 | NUR ---
patient back to room
--- NOTE | 2023-07-08 13:00 | NUR ---
PAGER ID: [phone] MESSAGE: [id number]- Maricruz Rivas- pt c/o pain. norco, morphine, xanax and ativan were dc'd. head CT results in. any new orders for pain management?- Benedicto [phone]
--- NOTE | 2023-07-08 13:51 | NUR ---
PAGER ID: [phone] MESSAGE: [id number]- Rob T- toradol ordered for IM. Did you mean to put IV?-Benedicto 2260
[2023-07-08] MEDS ORDERED: ketorolac tromethamine 15mg/ml inj. IM SCH (14:00)
--- NOTE | 2023-07-08 14:14 | NUR ---
PAGER ID: [phone] MESSAGE: [id number]- Maricruz Rivas- Toradol was ordered for IM. ok to give or did you want IV?- Benedicto 1962
[2023-07-08] MEDS: ketorolac tromethamine 15mg/ml inj. IV SCH ×2 (14:30→20:16)
[2023-07-08] MEDS: vancomycin/NS 1 GM ADD-VANTAGE 250 ML IV SCH (16:59)
--- NOTE | 2023-07-08 17:06 | NUR ---
PAGER ID: [phone] MESSAGE: [id number]- Charity RECINOS- Whrochelle. state left upper abd painful but unable to describe. "I don't feel good." Unable to elaborate.- Benedicto 6568
--- NOTE | 2023-07-08 17:48 | NUR ---
AGER ID: [phone] MESSAGE: [id number]-Rob, T- pulling at IV. trying to climb out of bed. stating painful.restless - Benedicto 0349
[2023-07-08] MEDS ORDERED: morphine 2 MG/ML inj. syringe IV ONE (17:50)
--- NOTE | 2023-07-08 18:26 | NUR ---
Problems reprioritized. Patient report given, questions answered & plan of care reviewed with HELEN CARTWRIGHT.
--- NOTE | 2023-07-08 18:30 | NUR ---
Patient in room PCU 3027. I have received report from HELEN Diane and had the opportunity to ask questions and assume patient care.
[2023-07-09] VITALS (12 sets, daily range): BP systolic 144–172; BP diastolic 82–96; PULSE 59–113; RESP 18–24; TEMP 97.5–98; O2SAT 94–100
--- NOTE | 2023-07-09 00:10 | NUR ---
pt pulled mid line IV out. needing ultrasound guidance to place IV. pt noncompliant and impulsive. removed tele unit. very restless and impulsive. pt will not cooperate with nursing. No IV access at this point.
[2023-07-09] MEDS: normal saline 1000ml 1,000 ML IV SCH ×3 (00:15→15:00)
[2023-07-09] MEDS: hydrocortisone sod succ/PF 100mg/2ml inj. IV SCH ×4 (02:00→20:00)
[2023-07-09] MEDS: ketorolac tromethamine 15mg/ml inj. IV SCH (02:00)
--- NOTE | 2023-07-09 04:05 | NUR ---
pt pulled cochran cath out. balloon intact. pt up to bathroom.
[2023-07-09] MEDS: vancomycin/NS 1 GM ADD-VANTAGE 250 ML IV SCH ×2 (04:50→14:53)
--- NOTE | 2023-07-09 06:57 | NUR ---
Problems reprioritized. Patient report given, questions answered & plan of care reviewed with HELEN Pinto.
--- NOTE | 2023-07-09 07:15 | NUR ---
Received report and assumed care of patient. patient puled cochran catheter, midline ultrasound iv and her telemetry box off and is refusing all care according to noc shift rn. went in and introduced myself and her nurse. attempts at asking patient questions without any response from the patient. read through past notes from this visit and she has been charted by physicians and nurses as a/ox4 throughout her stay. yesterday, concerns about a physiological process by rn - ct scan ordered and came back negative. at one point, patient had nurse group home supervisor in her room, she was complaining that her needs were not being met fast enough and she wanted xanax bc ativan did not work for her. alerted my charge nurse immediately and alerted director about current situation. pt was on cardiac gtts at one point and WILL NOT wear her telemetry. requesting a social service consult and will be notifying md immediately about current situation.
[2023-07-09] MEDS: ipratropium/albuterol 3ml nebule NEB SCH ×5 (07:36→23:23)
--- NOTE | 2023-07-09 07:41 | NUR ---
RT AT PATIENTS BEDSIDE FOR Q4 SVN TX. MED SCANNED AND PUT INTO NEB, SVN MASK WAS PLACED ON PT. PT UNCOOPERATIVE AND WOULD NOT KEEP MASK ON. PT STATED THAT SHE NO LONGER WANTED TX, SVN TX WAS STOPPED. PT HAS NO COMPLAINTS OF SOB, SPO2 IS 94% ON RA HR IS 113 WITH DIMINISHED BREATHSOUNDS. RT WILL RETURN FOR NEXT SCHEDULED TX. Addendum: 07/09/23 at 0745 by Isis Lombardo RT Amended: Links added.
[2023-07-09] MEDS: K and/or MAG REPLACEMENT MC SCH ×2 (08:00→20:00)
[2023-07-09] MEDS: amiodarone 200mg tablet PO SCH (08:00)
[2023-07-09] MEDS: docusate sod 100mg capsule PO SCH ×2 (08:00→21:08)
[2023-07-09] MEDS: aspirin 325mg tablet, delayed-release (Ecotrin) PO SCH (08:00)
[2023-07-09] MEDS: piperacillin/tazo 3.375gm/50ml 50 ML IV SCH ×2 (08:00→14:53)
[2023-07-09] MEDS: carvedilol 6.25mg tablet PO SCH ×2 (08:00→21:08)
[2023-07-09] MEDS: spironolactone 25 MG tablet PO SCH (08:30)
--- NOTE | 2023-07-09 10:30 | NUR ---
PAGER ID: [phone] MESSAGE: ROOM 27A MRS RECINOS - PULLED FC OUT WITH BALLOON INTACT, US GUIDED MIDLINE CATHETER, AND HER GRAIN TRIMMER - SHE WONT STAY DRESSED AND WONT ANSWER ANY QUESTIONS - SHE HAS BEEN CHARTED A/OX4 BY MDS - PLEASE ADVISE-SU [phone] TELE
[2023-07-09 10:41] LABS: BASOPHILS % (AUTO) 0.2 % (0-1); EOSINOPHILS % (AUTO) 0.1 % (0-6); HEMATOCRIT 36.5 % (35.0-45.0); HEMOGLOBIN 11.9 g/dl (12.0-16.0); LYMPHOCYTES # (AUTO) 1.8 X10'3 (1.1-4.8); MEAN CORPUSCULAR HEMOGLOBIN 27.7 PG (27.0-31.0); MEAN CORPUSCULAR HGB CONC 32.7 g/dL (33.0-36.5); MEAN CORPUSCULAR VOLUME 84.8 FL (78-98); MEAN PLATELET VOLUME 7.7 FL (7.4-10.4); MONOCYTES # (AUTO) 1.3 X10'3 (0-0.9); MONOCYTES % (AUTO) 8.5 % (2-12); NEUTROPHILS # (AUTO) 11.8 X10'3 (1.8-7.7); NEUTROPHILS % (AUTO) 79.2 % (42-75); PLATELET COUNT 448 X10'3 (140-440); RED BLOOD COUNT 4.31 X10'6 (4.20-5.60); RED CELL DISTRIBUTION WIDTH 15.8 % (11.5-14.5); WHITE BLOOD COUNT 14.9 X10'3 (4.5-11.0)
[2023-07-09 11:07] LABS: ALBUMIN 2.1 G/DL (3.4-5.0); ANION GAP 9 (8-16); BLOOD UREA NITROGEN 27 MG/DL (7-18); CALCIUM 8.4 MG/DL (8.5-10.1); CHLORIDE 109 MMOL/L (99-107); CREATININE 1.08 MG/DL (0.40-0.90); GLUCOSE 114 MG/DL (70-104); POTASSIUM 4.2 MMOL/L (3.5-5.1); PRO BRAIN NATRIURETIC PEPTIDE 12268 PG/ML (0-125); SODIUM 140 MMOL/L (135-145); TOTAL CARBON DIOXIDE 22.2 MMOL/L (24-32); eCRCL 38 ML/MIN; eGFR 51 ML/MIN
--- NOTE | 2023-07-09 11:23 | NUR ---
HI PATIENT PULLED MIDLINE OUT LAST NIGHT - SHE NOW HAS AN ORDER FOR CAT SCAN WITH IV CONTRAST - NEED A NEW MIDLINE OR A 20G PIV USING US - THANK YOU SO MUCH
--- NOTE | 2023-07-09 11:59 | NUR ---
PAGER ID: [phone] MESSAGE: ROOM 27A - PRO BNP IS BACK & MORE THAN [id number], IN THE PRESENCE OF PATIENT LYING FLAT - CT SCAN OF ABD/PELVIS ORDERED BY DR GOLD - EKG JUST DONE PATIENT IS COMPLAINING OF EPIGASTRIC/ABD PAIN - PLEASE ADVISE - SU [id number]
[2023-07-09] MEDS: diatr meglu/diatrizoate 30ml oral sol.-(3 dose) bottle PO SCH ×3 (12:00→15:00)
--- NOTE | 2023-07-09 12:02 | NUR ---
NOTIFIED HOSPITALIST AND CARDIOLOGY GROUP REGARDING THIS AM'S PRO BNP LEVELS OF MORE THAN [id number], IN THE PRESENCE OF THE PATIENT LYING COMPLETELY FLAT IN BED - EKG COMPLETED PER PROTOCOL BASED ON EPIGASTRIC PAIN. CT SCAN WITH CONTRAST ORDERED BY DR GOLD. I WILL ATTEMPT TO ENCOURAGE AND HELP PATIENT ADMINISTER THE ORAL CONTRAST NEEDED FOR CAT SCAN. SPOKE WITH CARDILOGY RESIDENT ABOUT PRO BNP LEVELS AND THAT PATIENT HAS NOT HAD ANYTHING IV OR PO, SHE IS REFUSING TO TAKE PO AND HAS NO IV, PATIENT PULLED EVERYTHING OUT DURING NOC SHIFT, INCLUDING KIM CATHETER, MIDLINE, AND TELEMETRY MONITORING. WHEN SPEAKING TO PATIENT RECENTLY, I ASKED HER TO LOOK ME IN THE EYE AND TELL ME IF SHE FEELS CONFUSED OR ORIENTED... SHE NODDED YES TO CONFUSED AND STARTED CRYING. REASSURED HER WE ARE WORKING ON FIGURING OUT WHAT IS GOING ON. AT THE BEDSIDE FOR A FEW MINUTES AND THEN WENT HOME. HOSPITALIST ASSIGNED TODAY IS AWARE OF EVERYTHING THAT IS GOING ON, INCLUDING THE EKG THAT WAS JUST COMPLETED. ORDERS RECEIVED FOR ABG NOW. NO NEW ORDERS FROM THE SIGNAL MECHANIC RESIDENT WHEN I NOTIFIED HER. WILL CONTINUE TO CLOSELY MONITOR
[2023-07-09 13:28] LABS: ABG BASE EXCESS -2.6 mmol/L (-2.0-2.0); ABG HCO3 21.7 mmol/L (22.0-26.0); ABG OXYGEN SATURATION 94.3 % (94-97); ABG PCO2 (T) 35.2 mmHg (32.0-45.0); ABG PH (T) 7.406 (7.350-7.450); ABG PO2 (T) 68.6 mmHg (75.0-100.0); ALLEN'S TEST POSITIVE; FCOHb 0.3 % (0.0-3.9); FHHb 5.7 % (0.0-5.0); FMetHb 0.3 % (0.0-1.5); FO2Hb 93.7 % (94-97); MODE ROOM AIR; PATIENT TEMPERATURE 36.4; TOTAL HEMOGLOBIN 12.6 G/dl (12.0-16.0)
[2023-07-09] MEDS ORDERED: furosemide 20 MG/2 ML vial IV ONE (14:00)
--- NOTE | 2023-07-09 14:04 | NUR ---
PAGE TO HOSPITALIST ON DUTY: PAGER ID: [phone] MESSAGE: ROOM 27A - JORJE GIOVANY IS TEXTBOOK NORMAL! WILL CONTINUE TO ATTEMPT AT KEEPING NEW PIV IN AND TELE ON-SHE CONTINUES TO TAKE EVERYTHING OFF - PLEASE ORDER XANAX &/OR PAIN MEDS PT IS SEVERELY UNCOMFORTABLE THANK YOU :) SU TELE [phone]
[2023-07-09] MEDS ORDERED: LORazepam 2 mg/ml vial IV ONE (14:25)
--- NOTE | 2023-07-09 17:10 | NUR ---
END OF SHIFT NOTE: PT ASSESSED AND FOUND TO BE ORIENTEDX2 TO SELF, PLACE, SITUATION AND YEAR. PT REFUSING CARE AND ANSWERS MINIMAL TO ANY/ALL QUESTIONS (SEE PREV NOTES) WAGON WASHER ASSESSED, SEE NOTES. DR ROSAS AND DR HUNTER IN TO SEE PATIENT THIS AFTERNOON - ORDERS FOR LASIX NOW AND DAILY. PT DID GET ANOTHER EXTENDED PIV FROM PICC RN DEPT AND HAS ALREADY BEEN "PEELING" IT OFF AND TRYING TO PULL OUT. THE PROBLEM IS, SHE IS ORIENTED ENOUGH TO UNDERSTAND AND KEEPS SAYING SHE IS SORRY. SUPER FRUSTRATING DAY PATIENT IS NOT LISTENING OR PARTICIPATING IN HER CARE - SHE WRITHES IN BED ALL DAY. CONCERNS FOR BLADDER TRAUMA AFTER SHE PULLED OUT THE KIM CATHETER LAST NIGHT, HOWEVER SHE HAS HAD MULTIPLE INCONTINENT EPISODES IN BED TODAY. BEDDING CHANGED MULTIPLE TIMES THROUGHOUT THE DAY. PT DID HAVE A LARGE BM WHICH APPEARS WNL. UNABLE TO OFFER MUCH FAR BEHAVIOR OF PATIENT GOES. DR MILLER ORDERED XANAX TO SEE IF THAT MIGHT HELP AND SHE WILL NOT TAKE ANYTHING PO. ATIVAN WAS SUBSTITUTED. PATIENT CONTINUES TO MOAN AND GROAN IN BED AND WILL NOT ACCEPT CARE - SPOKE WITH DOCTORS ABOUT A COGNITIVE EVALUATION. PATIENT ANSWERS QUESTIONS APPROPRIATELY BUT SOMETHING IS GOING ON AND AM UNCERTAIN WHAT IT IS. WILL REPORT OFF TO MEDICAL LIBRARY ASSISTANT SOON. WILL CONTINUE TO MONITOR
--- NOTE | 2023-07-09 17:23 | NUR ---
JUST REMINDED PATIENT TO NOT PULL HER IV OUT. SHE HAS ATTEMPTED 3 TIMES IN THE LAST 15 MINUTES AND WAS FINALLY SUCCESSFUL. NOTIFIED DR MILLER - NO NEW ORDERS AT THIS TIME. THERE IS NOT ANY LINE IN PATIENTS BODY THAT SHE CAN PULL OUT CURRENTLY.
--- NOTE | 2023-07-09 18:40 | NUR ---
Patient in room PCU 3027. I have received report from HELEN Pinto and had the opportunity to ask questions and assume patient care.
[2023-07-10] VITALS (15 sets, daily range): BP systolic 127–160; BP diastolic 66–84; PULSE 58–89; RESP 14–20; TEMP 97.6–98.3; O2SAT 93–98
[2023-07-10] MEDS: piperacillin/tazo 3.375gm/50ml 50 ML IV SCH
[2023-07-10] MEDS: hydrocortisone sod succ/PF 100mg/2ml inj. IV SCH (01:58)
[2023-07-10] MEDS: ipratropium/albuterol 3ml nebule NEB SCH ×5 (03:24→21:15)
[2023-07-10] MEDS ORDERED: VANCOMYCIN LEVEL IV ONE (04:30)
[2023-07-10] MEDS: vancomycin/NS 1 GM ADD-VANTAGE 250 ML IV SCH (05:00)
--- NOTE | 2023-07-10 06:03 | NUR ---
pt more calm tonight. incontinence numerous times at beginning of shift. after many bed changes, we decided to try a wick. pt familiar with wick and she calmed and slept for a few hours at a time. still no IV access due to her continually pulling them out. 0 IV medications given. perhaps PO meds would be better. she does take her pills without incident.
--- NOTE | 2023-07-10 06:51 | NUR ---
Problems reprioritized. Patient report given, questions answered & plan of care reviewed with HELEN Landers.
[2023-07-10] MEDS: docusate sod 100mg capsule PO SCH ×2 (08:00→20:59)
[2023-07-10] MEDS: EMPAGLIFLOZIN 10 MG TABLET PO SCH (08:00)
[2023-07-10] MEDS: losartan 25mg tablet PO SCH (08:00)
[2023-07-10] MEDS: K and/or MAG REPLACEMENT MC SCH ×2 (08:00→20:54)
[2023-07-10] MEDS: carvedilol 6.25mg tablet PO SCH ×2 (08:00→21:00)
[2023-07-10] MEDS ORDERED: furosemide 40mg/4ml inj IV SCH (08:00)
[2023-07-10] MEDS: amiodarone 200mg tablet PO SCH (08:00)
[2023-07-10] MEDS: aspirin 325mg tablet, delayed-release (Ecotrin) PO SCH (08:00)
[2023-07-10] MEDS: spironolactone 25 MG tablet PO SCH (09:16)
[2023-07-10] MEDS: ALPRAZolam 0.25mg tablet PO PRN ×2 (09:17→16:06)
[2023-07-10 09:31] LABS: BASOPHILS % (AUTO) 0.1 % (0-1); EOSINOPHILS % (AUTO) 0.3 % (0-6); HEMATOCRIT 36.2 % (35.0-45.0); HEMOGLOBIN 12.1 g/dl (12.0-16.0); LYMPHOCYTES # (AUTO) 1.3 X10'3 (1.1-4.8); LYMPHOCYTES % (AUTO) 10.8 % (21-51); MEAN CORPUSCULAR HEMOGLOBIN 28.2 PG (27.0-31.0); MEAN CORPUSCULAR HGB CONC 33.4 g/dL (33.0-36.5); MEAN CORPUSCULAR VOLUME 84.4 FL (78-98); MEAN PLATELET VOLUME 7.6 FL (7.4-10.4); MONOCYTES # (AUTO) 0.8 X10'3 (0-0.9); MONOCYTES % (AUTO) 7.2 % (2-12); NEUTROPHILS # (AUTO) 9.5 X10'3 (1.8-7.7); NEUTROPHILS % (AUTO) 81.6 % (42-75); PLATELET COUNT 461 X10'3 (140-440); RED BLOOD COUNT 4.29 X10'6 (4.20-5.60); RED CELL DISTRIBUTION WIDTH 15.8 % (11.5-14.5); WHITE BLOOD COUNT 11.6 X10'3 (4.5-11.0)
[2023-07-10] MEDS: furosemide 40mg tablet PO SCH (09:50)
[2023-07-10 10:17] LABS: ALANINE AMINOTRANSFERASE 32 U/L (12-78); ALBUMIN 2.3 G/DL (3.4-5.0); ALBUMIN/GLOBULIN RATIO 0.5 (1.1-1.5); ALKALINE PHOSPHATASE 87 IU/L (46-116); ANION GAP 9 (8-16); ASPARTATE AMINO TRANSFERASE 36 U/L (10-37); BILIRUBIN,TOTAL 0.9 MG/DL (0.1-1.0); BLOOD UREA NITROGEN 16 MG/DL (7-18); BUN/CREATININE RATIO 16.3 (10.0-20.0); CHLORIDE 104 MMOL/L (99-107); CREATININE 0.98 MG/DL (0.40-0.90); GLUCOSE 91 MG/DL (70-104); POTASSIUM 3.5 MMOL/L (3.5-5.1); PRO BRAIN NATRIURETIC PEPTIDE 14821 PG/ML (0-125); SODIUM 140 MMOL/L (135-145); eCRCL 42 ML/MIN; eGFR 57 ML/MIN
[2023-07-10 10:19] LABS: CALCIUM 8.2 MG/DL (8.5-10.1)
[2023-07-10] MEDS: linezolid 600mg tablet PO SCH ×2 (11:00→20:59)
[2023-07-10] MEDS: amox tr/potassium clavulanate 875/125mg TAB PO SCH ×2 (11:00→18:10)
--- NOTE | 2023-07-10 12:07 | NUR ---
Initial: Pt admit for RLE cellulitis and septic shock. Pt on a heart healthy diet and eating poorly, documented with average 22% PO intake since admit not meeting estimated nutrient needs. Recommend an Ensure Enlive TID to optimize nutrient intake, pending physician approval in EMR. Noted pt started on Zyvox though low tyramine nutrition therapy education deferred at this time as pt documented to be A/O x3 and resistive to care/refusing all care. Per EMR pulling out all lines so unlikely that pt would be accepting of NGT placement for EN IF it came to that. LBM 07/09, large per RN note. Will continue to follow closely and make recommendations as appropriate. Recommendations: 1) Liberalize to regular diet if PO intake does not improve 2) Ensure Enlive TID, pending physician approval in EMR 3) Encourage PO intake and assist with meals PRN 4) Routine bowel care 5) Scaled weight this admit; subsequent weekly scaled weights Addendum: 07/10/23 at [address] Amended: Links added.
[2023-07-10] MEDS: lactose-reduced food (Ensure Enlive) - 237ml bottle PO SCH (13:00)
--- NOTE | 2023-07-10 13:18 | NUR ---
PRESSURE ULCER EDUCATION: DEFINITION: A pressure ulcer is an area of skin that breaks down when you stay in one position too long. The constant pressure against the skin reduces the blood flow to that area and the affected tissue dies. CAUSES: "Being bedridden or in a wheelchair "Fragile skin "Having a chronic condition, such as diabetes or vascular disease "Inability to move certain parts of your body without assistance "Older age "Incontinence of urine or stool SYMPTOMS: "A reddened area that DOES NOT turn white when pressed on - this can be the beginning of a pressure ulcer "A blister, deep sore or a crater - these can be advanced pressure ulcers FIRST AID: "Relieve the pressure on this area "Keep the area clean and dry "Call your primary doctor if you see any of the above symptoms "DO NOT massage the area "DO NOT use a donut shaped or ring shaped pillow- these actually interfere with the blood flow and cause complications PREVENTION: "Check for pressure ulcers everyday "Change position at least every two hours to relieve pressure "Use items that help relieve pressure- pillows, sheepskin, foam padding, and powders. "Keep skin clean and dry "Eat healthy well balanced meals "Exercise daily IF YOU SEE ANY OF THESE SYMPTOMS WHILE IN THE HOSPITAL - TELL YOUR NURSE IMMEDIATELY. IF YOU SEE ANY OF THESE SYMPTOMS WHILE AT HOME OR HAVE ANY QUESTIONS OR CONCERNS ABOUT PRESSURE ULCERS - CALL YOUR PRIMARY DOCTOR IMMEDIATELY. Addendum: 07/10/23 at 1318 by Isis Brandon RN Amended: Links added.
[2023-07-10] MEDS: acetaminophen 325mg tablet PO PRN (16:18)
[2023-07-10] MEDS ORDERED: iohexol 300mg/ml 100ml inj. ONE (17:04)
[2023-07-10] MEDS ORDERED: iohexol 300 MG/1 ML 50ml polymer ONE (17:04)
--- NOTE | 2023-07-10 17:06 | NUR ---
1500 SVN treatment triaged.
--- NOTE | 2023-07-10 18:42 | NUR ---
Patient in room PCU 3027. I have received report from MENA CERVANTES and had the opportunity to ask questions and assume patient care.
[2023-07-11] VITALS (24 sets, daily range): BP systolic 116–165; BP diastolic 72–90; PULSE 50–78; RESP 12–20; TEMP 97.4–97.9; O2SAT 93–100
[2023-07-11] MEDS: ipratropium/albuterol 3ml nebule NEB SCH ×6 (03:31→20:42)
--- NOTE | 2023-07-11 06:29 | NUR ---
Problems reprioritized. Patient report given, questions answered & plan of care reviewed with MENA CERVANTES.
[2023-07-11] MEDS: lactose-reduced food (Ensure Enlive) - 237ml bottle PO SCH ×3 (08:00→18:00)
[2023-07-11] MEDS: K and/or MAG REPLACEMENT MC SCH ×3 (08:00→20:46)
[2023-07-11] MEDS: spironolactone 25 MG tablet PO SCH (08:30)
[2023-07-11 10:34] LABS: BASOPHILS % (AUTO) 0.1 % (0-1); EOSINOPHILS # (AUTO) 0.1 X10'3 (0-0.9); EOSINOPHILS % (AUTO) 0.5 % (0-6); HEMATOCRIT 38.7 % (35.0-45.0); HEMOGLOBIN 12.9 g/dl (12.0-16.0); LYMPHOCYTES # (AUTO) 1.5 X10'3 (1.1-4.8); LYMPHOCYTES % (AUTO) 14.2 % (21-51); MEAN CORPUSCULAR HEMOGLOBIN 28.3 PG (27.0-31.0); MEAN CORPUSCULAR HGB CONC 33.4 g/dL (33.0-36.5); MEAN CORPUSCULAR VOLUME 84.8 FL (78-98); MEAN PLATELET VOLUME 7.5 FL (7.4-10.4); MONOCYTES # (AUTO) 0.6 X10'3 (0-0.9); MONOCYTES % (AUTO) 6.2 % (2-12); NEUTROPHILS # (AUTO) 8.3 X10'3 (1.8-7.7); PLATELET COUNT 450 X10'3 (140-440); RED BLOOD COUNT 4.56 X10'6 (4.20-5.60); RED CELL DISTRIBUTION WIDTH 15.3 % (11.5-14.5); WHITE BLOOD COUNT 10.5 X10'3 (4.5-11.0)
[2023-07-11] MEDS: morphine 2 MG/ML inj. syringe IV PRN ×2 (10:44→20:54)
[2023-07-11 10:59] LABS: ALBUMIN 2.2 G/DL (3.4-5.0); ANION GAP 7 (8-16); BLOOD UREA NITROGEN 12 MG/DL (7-18); BUN/CREATININE RATIO 12.1 (10.0-20.0); CALCIUM 8.1 MG/DL (8.5-10.1); CHLORIDE 101 MMOL/L (99-107); CREATININE 0.99 MG/DL (0.40-0.90); GLUCOSE 136 MG/DL (70-104); POTASSIUM 3.3 MMOL/L (3.5-5.1); PRO BRAIN NATRIURETIC PEPTIDE 5692 PG/ML (0-125); SODIUM 137 MMOL/L (135-145); TOTAL CARBON DIOXIDE 29.5 MMOL/L (24-32); eCRCL 42 ML/MIN; eGFR 56 ML/MIN
[2023-07-11] MEDS ORDERED: potassium Cl 20 mEq SR tablet PO PRN (12:40)
[2023-07-11] MEDS ORDERED: magnesium Cl slow-release 64mg tablet PO PRN (12:40)
[2023-07-11] MEDS ORDERED: potassium Cl 40MEQ/1/2NS 520ml 520 ML IV PRN (12:40)
[2023-07-11] MEDS ORDERED: magnesium 4gm in 100ml NS 100 ML IV PRN (12:40)
[2023-07-11] MEDS ORDERED: magnesium 2GM in 50ml NS 50 ML IV PRN (12:40)
[2023-07-11] MEDS: acetaminophen 325mg tablet PO PRN (13:29)
[2023-07-11] MEDS: linezolid 600mg tablet PO SCH ×2 (13:30→20:55)
[2023-07-11] MEDS: carvedilol 6.25mg tablet PO SCH ×2 (13:30→20:55)
[2023-07-11] MEDS: predniSONE 20 mg tablet PO SCH (13:30)
[2023-07-11] MEDS: amiodarone 200mg tablet PO SCH (13:30)
[2023-07-11] MEDS: ALPRAZolam 0.25mg tablet PO PRN (13:30)
[2023-07-11] MEDS: pantoprazole 40mg Tablet.DR PO PRN (13:30)
[2023-07-11] MEDS: EMPAGLIFLOZIN 10 MG TABLET PO SCH (13:30)
[2023-07-11] MEDS: furosemide 40mg tablet PO SCH (13:31)
[2023-07-11] MEDS: losartan 25mg tablet PO SCH (13:31)
[2023-07-11] MEDS: docusate sod 100mg capsule PO SCH ×2 (13:31→20:55)
[2023-07-11] MEDS: amox tr/potassium clavulanate 875/125mg TAB PO SCH ×2 (13:31→20:55)
[2023-07-11] MEDS: aspirin 325mg tablet, delayed-release (Ecotrin) PO SCH (13:31)
[2023-07-11] MEDS ORDERED: LIDOcaine 2% (20mg/ml) 5ml vial ONE (18:57)
[2023-07-11] MEDS ORDERED: sevoflurane 250ml liquid IH ONE (18:57)
[2023-07-11] MEDS ORDERED: midazolam 1 mg/ML 2ml injection ONE (19:00)
[2023-07-11] MEDS ORDERED: fentaNYL/PF 50MCG/1 ML 2ML syringe ONE (19:00)
--- NOTE | 2023-07-11 19:15 | NUR ---
Patient in room PCU 3027. I have received report from MENA CERVANTES and had the opportunity to ask questions and assume patient care.
[2023-07-11] MEDS ORDERED: propofol inj 20 ML IV ONE (19:34)
--- NOTE | 2023-07-11 19:42 | NUR ---
Received from OR via BED, accompanied by Anesthesiologist and report given by CHRIS Anesthesiologist. PATIENT UNCONSCIOUS WITH LMA, NO S/S OF PAIN, V/S WNL, 18G TO RIGHT FOREARM, 20G TO RIGHT HAND, drsg to RIGHT LEG C/D/I. Addendum: 07/11/23 at 2012 by Prosper Elmore RN Amended: Links added.
--- NOTE | 2023-07-11 20:12 | NUR ---
PATIENT HAS MET ALL CRITERIA FOR TRANSFER TO PCU FLOOR. VSS. DRESSINGS INTACT. BED LOW, CALL LIGHT PRESENT AND 2 RAILS UP. RN PRESENT TO ACCEPT CARE OF PATIENT AND REPORT HAS BEEN CALLED. ALL QUESTIONS ANSWERED TO ACCEPTING RN. Addendum: 07/11/23 at 2023 by Prosper Elmore RN Amended: Links added.
--- NOTE | 2023-07-11 20:26 | NUR ---
PATIENT BACK FORM OR
[2023-07-12] VITALS (13 sets, daily range): BP systolic 125–145; BP diastolic 64–84; PULSE 56–90; RESP 12–20; TEMP 97.4–98.1; O2SAT 93–97
[2023-07-12] MEDS: ipratropium/albuterol 3ml nebule NEB SCH ×4 (00:49→12:06)
[2023-07-12] MEDS: potassium Cl 20 mEq SR tablet PO PRN ×3 (01:38→23:25)
--- NOTE | 2023-07-12 06:54 | NUR ---
Problems reprioritized. Patient report given, questions answered & plan of care reviewed with MENA CERVANTES.
[2023-07-12] MEDS: lactose-reduced food (Ensure Enlive) - 237ml bottle PO SCH ×3 (08:00→18:00)
[2023-07-12] MEDS: K and/or MAG REPLACEMENT MC SCH ×4 (08:00→20:05)
[2023-07-12 09:25] LABS: BASOPHILS % (AUTO) 0.2 % (0-1); EOSINOPHILS # (AUTO) 0.1 X10'3 (0-0.9); EOSINOPHILS % (AUTO) 0.6 % (0-6); HEMATOCRIT 39.4 % (35.0-45.0); HEMOGLOBIN 12.9 g/dl (12.0-16.0); LYMPHOCYTES # (AUTO) 1.9 X10'3 (1.1-4.8); LYMPHOCYTES % (AUTO) 19.3 % (21-51); MEAN CORPUSCULAR HGB CONC 32.7 g/dL (33.0-36.5); MEAN CORPUSCULAR VOLUME 85.8 FL (78-98); MEAN PLATELET VOLUME 7.4 FL (7.4-10.4); MONOCYTES # (AUTO) 0.8 X10'3 (0-0.9); MONOCYTES % (AUTO) 8.5 % (2-12); NEUTROPHILS # (AUTO) 7.2 X10'3 (1.8-7.7); NEUTROPHILS % (AUTO) 71.4 % (42-75); PLATELET COUNT 455 X10'3 (140-440); RED BLOOD COUNT 4.59 X10'6 (4.20-5.60); RED CELL DISTRIBUTION WIDTH 15.6 % (11.5-14.5)
[2023-07-12 09:29] LABS: ALBUMIN 2.3 G/DL (3.4-5.0); ANION GAP 6 (8-16); BLOOD UREA NITROGEN 15 MG/DL (7-18); BUN/CREATININE RATIO 15.5 (10.0-20.0); CALCIUM 8.2 MG/DL (8.5-10.1); CHLORIDE 101 MMOL/L (99-107); CREATININE 0.97 MG/DL (0.40-0.90); GLUCOSE 92 MG/DL (70-104); POTASSIUM 3.3 MMOL/L (3.5-5.1); SODIUM 138 MMOL/L (135-145); TOTAL CARBON DIOXIDE 30.7 MMOL/L (24-32); eCRCL 42 ML/MIN; eGFR 57 ML/MIN
[2023-07-12] MEDS: amiodarone 200mg tablet PO SCH (10:06)
[2023-07-12] MEDS: predniSONE 20 mg tablet PO SCH (10:07)
[2023-07-12] MEDS: EMPAGLIFLOZIN 10 MG TABLET PO SCH (10:07)
[2023-07-12] MEDS: amox tr/potassium clavulanate 875/125mg TAB PO SCH ×2 (10:07→17:07)
[2023-07-12] MEDS: pantoprazole 40mg Tablet.DR PO PRN (10:08)
[2023-07-12] MEDS: ALPRAZolam 0.25mg tablet PO PRN (10:08)
[2023-07-12] MEDS: linezolid 600mg tablet PO SCH ×2 (10:08→19:48)
[2023-07-12] MEDS: docusate sod 100mg capsule PO SCH ×2 (10:09→19:52)
[2023-07-12] MEDS: carvedilol 6.25mg tablet PO SCH ×2 (10:09→19:48)
[2023-07-12] MEDS: aspirin 325mg tablet, delayed-release (Ecotrin) PO SCH (10:09)
[2023-07-12] MEDS: furosemide 40mg tablet PO SCH (10:10)
[2023-07-12] MEDS: losartan 25mg tablet PO SCH (10:10)
[2023-07-12] MEDS: spironolactone 25 MG tablet PO SCH (10:11)
[2023-07-12] MEDS: morphine 2 MG/ML inj. syringe IV PRN ×3 (10:23→19:50)
[2023-07-13] VITALS (9 sets, daily range): BP systolic 106–149; BP diastolic 59–81; PULSE 53–107; RESP 12–21; TEMP 96.9–98.9; O2SAT 92–99
[2023-07-13 06:13] LABS: BASOPHILS % (AUTO) 0.4 % (0-1); EOSINOPHILS % (AUTO) 0.4 % (0-6); HEMATOCRIT 37.5 % (35.0-45.0); HEMOGLOBIN 12.5 g/dl (12.0-16.0); LYMPHOCYTES # (AUTO) 1.9 X10'3 (1.1-4.8); MEAN CORPUSCULAR HEMOGLOBIN 28.4 PG (27.0-31.0); MEAN CORPUSCULAR HGB CONC 33.2 g/dL (33.0-36.5); MEAN CORPUSCULAR VOLUME 85.5 FL (78-98); MEAN PLATELET VOLUME 7.5 FL (7.4-10.4); MONOCYTES # (AUTO) 0.7 X10'3 (0-0.9); MONOCYTES % (AUTO) 7.5 % (2-12); NEUTROPHILS # (AUTO) 6.9 X10'3 (1.8-7.7); NEUTROPHILS % (AUTO) 71.7 % (42-75); PLATELET COUNT 431 X10'3 (140-440); RED BLOOD COUNT 4.39 X10'6 (4.20-5.60); RED CELL DISTRIBUTION WIDTH 15.9 % (11.5-14.5); WHITE BLOOD COUNT 9.7 X10'3 (4.5-11.0)
--- NOTE | 2023-07-13 06:25 | NUR ---
Problems reprioritized. Patient report given, questions answered & plan of care reviewed with MENA CERVANTES.
[2023-07-13 06:36] LABS: ALBUMIN 2.3 G/DL (3.4-5.0); ANION GAP 6 (8-16); BLOOD UREA NITROGEN 19 MG/DL (7-18); BUN/CREATININE RATIO 19.2 (10.0-20.0); CHLORIDE 102 MMOL/L (99-107); CREATININE 0.99 MG/DL (0.40-0.90); GLUCOSE 100 MG/DL (70-104); MAGNESIUM 2.1 MG/DL (1.5-2.4); POTASSIUM 3.7 MMOL/L (3.5-5.1); SODIUM 138 MMOL/L (135-145); TOTAL CARBON DIOXIDE 30.4 MMOL/L (24-32); eCRCL 42 ML/MIN; eGFR 56 ML/MIN
[2023-07-13] MEDS: carvedilol 6.25mg tablet PO SCH ×2 (08:00→21:05)
[2023-07-13] MEDS: docusate sod 100mg capsule PO SCH ×3 (08:00→20:00)
[2023-07-13] MEDS: K and/or MAG REPLACEMENT MC SCH ×4 (08:00→20:56)
[2023-07-13] MEDS: lactose-reduced food (Ensure Enlive) - 237ml bottle PO SCH ×3 (08:00→18:13)
[2023-07-13] MEDS: amox tr/potassium clavulanate 875/125mg TAB PO SCH ×2 (09:03→18:13)
[2023-07-13] MEDS: aspirin 325mg tablet, delayed-release (Ecotrin) PO SCH (09:04)
[2023-07-13] MEDS: losartan 25mg tablet PO SCH (09:04)
[2023-07-13] MEDS: furosemide 40mg tablet PO SCH (09:04)
[2023-07-13] MEDS: amiodarone 200mg tablet PO SCH (09:04)
[2023-07-13] MEDS: linezolid 600mg tablet PO SCH ×2 (09:04→21:05)
[2023-07-13] MEDS: predniSONE 20 mg tablet PO SCH (09:04)
[2023-07-13] MEDS: EMPAGLIFLOZIN 10 MG TABLET PO SCH (09:04)
[2023-07-13] MEDS: spironolactone 25 MG tablet PO SCH (09:08)
[2023-07-13] MEDS ORDERED: morphine 4 MG/ML inj SYRINge IV ONE (09:45)
[2023-07-13] MEDS: ALPRAZolam 0.25mg tablet PO PRN (10:51)
[2023-07-13] MEDS: ondansetron 4mg rapidly disintigrating tab PO PRN (10:51)
--- NOTE | 2023-07-13 16:23 | NUR ---
F/u 07/13: Per EMR septic shock has resolved thus adjusting protein needs. Pt continues on a heart healthy diet with average PO intake of 77% x 8 meals . Pt also receiving Ensure Enlive TIDWM with average intake of 86% x 7 ONS. PO intake alone met met 100% of estimated kcal and protein needs. If adequate PO intake persist, Ensure will no longer be warranted. LBM on 07/12 per EMR. Will continue to monitor and make recommendations as appropriate Recommendations: 1) continue heart healthy diet 2) if adequate PO intake persist discontinue ONS 3) Routine bowel care 4) Scaled weight this admit; subsequent weekly scaled weights 5) Low tyramine nutrition therapy education as appropriate Addendum: 07/13/23 at [address] Amended: Links added.
--- NOTE | 2023-07-13 18:32 | NUR ---
Patient in room PCU 3027. I have received report from MENA CERVANTES and had the opportunity to ask questions and assume patient care.
[2023-07-13] MEDS: morphine 2 MG/ML inj. syringe IV PRN (21:07)
--- NOTE | 2023-07-13 22:00 | NUR ---
PATIENT REFUSED TO HAVE VITAL SIGNS TAKEN. EDUCATED PATIENT AND WILL CONTINUE TO MONITOR.
[2023-07-14] VITALS (8 sets, daily range): BP systolic 107–151; BP diastolic 60–87; PULSE 54–62; RESP 14–18; TEMP 97–98.5; O2SAT 92–96
--- NOTE | 2023-07-14 06:34 | NUR ---
Problems reprioritized. Patient report given, questions answered & plan of care reviewed with AMEYA CERVANTES.
[2023-07-14 06:58] LABS: ALBUMIN 2.3 G/DL (3.4-5.0); ANION GAP 5 (8-16); BLOOD UREA NITROGEN 17 MG/DL (7-18); BUN/CREATININE RATIO 17.7 (10.0-20.0); CALCIUM 8.2 MG/DL (8.5-10.1); CHLORIDE 103 MMOL/L (99-107); CREATININE 0.96 MG/DL (0.40-0.90); GLUCOSE 82 MG/DL (70-104); MAGNESIUM 2.3 MG/DL (1.5-2.4); POTASSIUM 3.7 MMOL/L (3.5-5.1); SODIUM 137 MMOL/L (135-145); TOTAL CARBON DIOXIDE 29.5 MMOL/L (24-32); eCRCL 43 ML/MIN; eGFR 58 ML/MIN
[2023-07-14 07:11] LABS: BASOPHILS % (AUTO) 0.3 % (0-1); EOSINOPHILS % (AUTO) 0.4 % (0-6); HEMOGLOBIN 12.7 g/dl (12.0-16.0); LYMPHOCYTES # (AUTO) 2.3 X10'3 (1.1-4.8); LYMPHOCYTES % (AUTO) 25.3 % (21-51); MEAN CORPUSCULAR HGB CONC 33.5 g/dL (33.0-36.5); MEAN CORPUSCULAR VOLUME 86.5 FL (78-98); MEAN PLATELET VOLUME 7.8 FL (7.4-10.4); MONOCYTES # (AUTO) 0.7 X10'3 (0-0.9); MONOCYTES % (AUTO) 8.2 % (2-12); NEUTROPHILS % (AUTO) 65.8 % (42-75); PLATELET COUNT 413 X10'3 (140-440); WHITE BLOOD COUNT 9.1 X10'3 (4.5-11.0)
[2023-07-14] MEDS: amox tr/potassium clavulanate 875/125mg TAB PO SCH ×2 (07:41→16:51)
[2023-07-14] MEDS: losartan 25mg tablet PO SCH (07:42)
[2023-07-14] MEDS: linezolid 600mg tablet PO SCH (07:43)
[2023-07-14] MEDS: amiodarone 200mg tablet PO SCH (07:43)
[2023-07-14] MEDS: carvedilol 6.25mg tablet PO SCH ×2 (07:43→19:43)
[2023-07-14] MEDS: predniSONE 20 mg tablet PO SCH (07:44)
[2023-07-14] MEDS: EMPAGLIFLOZIN 10 MG TABLET PO SCH (07:45)
[2023-07-14] MEDS: furosemide 40mg tablet PO SCH (07:45)
[2023-07-14] MEDS: spironolactone 25 MG tablet PO SCH (07:45)
[2023-07-14] MEDS: aspirin 325mg tablet, delayed-release (Ecotrin) PO SCH (07:47)
[2023-07-14] MEDS: lactose-reduced food (Ensure Enlive) - 237ml bottle PO SCH ×3 (08:00→18:00)
[2023-07-14] MEDS: docusate sod 100mg capsule PO SCH ×2 (08:00→19:43)
[2023-07-14] MEDS: K and/or MAG REPLACEMENT MC SCH ×4 (08:16→19:32)
[2023-07-14] MEDS: ondansetron 4mg rapidly disintigrating tab PO PRN (10:50)
[2023-07-14] MEDS: morphine 2 MG/ML inj. syringe IV PRN ×2 (10:53→20:01)
--- NOTE | 2023-07-14 18:19 | NUR ---
Report given to Kena Aponte
--- NOTE | 2023-07-14 18:25 | NUR ---
Patient in room PCU 3027. I have received report from HELEN Farrar and had the opportunity to ask questions and assume patient care.
[2023-07-15 02:00] VITALS: RESP 16
[2023-07-15 06:00] VITALS: BP 136/70; PULSE 59; RESP 16; TEMP 98.4; O2SAT 97
--- NOTE | 2023-07-15 06:43 | NUR ---
Problems reprioritized. Patient report given, questions answered & plan of care reviewed with HELEN Markham.
--- NOTE | 2023-07-15 06:45 | NUR ---
Patient in room PCU 3027. I have received report from Kena CERVANTES and had the opportunity to ask questions and assume patient care.
[2023-07-15] MEDS: K and/or MAG REPLACEMENT MC SCH ×2 (08:00)
[2023-07-15] MEDS ORDERED: predniSONE 20 mg tablet PO SCH (08:00)
[2023-07-15] MEDS: docusate sod 100mg capsule PO SCH (08:00)
[2023-07-15] MEDS: lactose-reduced food (Ensure Enlive) - 237ml bottle PO SCH ×2 (08:00→13:00)
--- NOTE | 2023-07-15 08:46 | NUR ---
F/u: Per EMR pt no longer receiving Zyvox, low tyramine nutrition therapy education no longer warranted. Addendum: 07/15/23 at [address] Amended: Links added.
[2023-07-15] MEDS: furosemide 40mg tablet PO SCH (09:02)
[2023-07-15] MEDS: aspirin 325mg tablet, delayed-release (Ecotrin) PO SCH (09:02)
[2023-07-15] MEDS: EMPAGLIFLOZIN 10 MG TABLET PO SCH (09:03)
[2023-07-15] MEDS: amox tr/potassium clavulanate 875/125mg TAB PO SCH (09:03)
[2023-07-15] MEDS: losartan 25mg tablet PO SCH (09:10)
[2023-07-15] MEDS: amiodarone 200mg tablet PO SCH (09:10)
[2023-07-15] MEDS: carvedilol 6.25mg tablet PO SCH (09:10)
[2023-07-15] MEDS: spironolactone 25 MG tablet PO SCH (09:17)
[2023-07-15 09:21] LABS: ALBUMIN 2.6 G/DL (3.4-5.0); ANION GAP 7 (8-16); BLOOD UREA NITROGEN 19 MG/DL (7-18); BUN/CREATININE RATIO 17.6 (10.0-20.0); CALCIUM 8.6 MG/DL (8.5-10.1); CHLORIDE 102 MMOL/L (99-107); CREATININE 1.08 MG/DL (0.40-0.90); GLUCOSE 82 MG/DL (70-104); MAGNESIUM 2.6 MG/DL (1.5-2.4); SODIUM 137 MMOL/L (135-145); eCRCL 38 ML/MIN; eGFR 51 ML/MIN
[2023-07-15 11:00] VITALS: BP 114/63; PULSE 61; RESP 19; TEMP 98.4; O2SAT 96
[2023-07-15 11:26] LABS: BASOPHILS % (AUTO) 0.3 % (0-1); EOSINOPHILS % (AUTO) 0.4 % (0-6); HEMATOCRIT 42.4 % (35.0-45.0); LYMPHOCYTES % (AUTO) 15.1 % (21-51); MEAN CORPUSCULAR HEMOGLOBIN 28.6 PG (27.0-31.0); MEAN CORPUSCULAR HGB CONC 33.1 g/dL (33.0-36.5); MEAN CORPUSCULAR VOLUME 86.5 FL (78-98); MEAN PLATELET VOLUME 7.3 FL (7.4-10.4); MONOCYTES # (AUTO) 0.9 X10'3 (0-0.9); MONOCYTES % (AUTO) 6.7 % (2-12); NEUTROPHILS # (AUTO) 10.2 X10'3 (1.8-7.7); NEUTROPHILS % (AUTO) 77.5 % (42-75); PLATELET COUNT 415 X10'3 (140-440); RED CELL DISTRIBUTION WIDTH 15.8 % (11.5-14.5); WHITE BLOOD COUNT 13.2 X10'3 (4.5-11.0)
[2023-07-15] MEDS ORDERED: EMPA10TA PO (11:52)
[2023-07-15] MEDS ORDERED: SPIR25TA PO (11:52)
[2023-07-15] MEDS ORDERED: FURO40TA4 PO (11:52)
[2023-07-15] MEDS ORDERED: AMOX-580 PO (11:52)
[2023-07-15] MEDS ORDERED: ASPI-1071 PO (11:52)
[2023-07-15] MEDS ORDERED: LOSA25TA41 PO (11:52)
[2023-07-15] MEDS ORDERED: DOCU100C40 PO (11:52)
[2023-07-15] MEDS ORDERED: PRED10TA PO (11:52)
[2023-07-15] MEDS ORDERED: CARV6.253 PO (11:52)
[2023-07-15] MEDS ORDERED: AMI200T PO (11:52)
[2023-07-15] MEDS ORDERED: IPRA3AMP9 NEB (11:52)
[2023-07-15] MEDS ORDERED: HYDR-3965 PO (11:53)
--- NOTE | 2023-07-15 12:19 | NUR ---
Taken by wound team Addendum: 07/15/23 at 1220 by Shahrzad Negro RN Amended: Links added.
[2023-07-15] MEDS: ondansetron 4mg rapidly disintigrating tab PO PRN (12:39)
[2023-07-15] MEDS: morphine 2 MG/ML inj. syringe IV PRN (12:40)
[2023-07-15 13:40] VITALS: RESP 16
--- NOTE | 2023-07-15 17:12 | NUR ---
patient seen by Dr Lopez,is for discharge. Patients wound changed to right lower calf. morphine given x1 for wound pain.with good result. Report called to Hollie CARLISLE. patient DC to [facility] via [facility]x with maxx izquierdo in stable condition
== END 2023-07-15 15:50 | DRG 871 ==
LOC: ER 09:56 → ED HOLD 14:33 → EDBEDREQ 07-06 08:39 → PCU 3S 07-06 09:38 → UNDODISIN 07-09 11:27 → SUR 3N 07-11 13:35 → PCU 3S 07-11 13:38
PROVIDERS: ADMIT Internal Medicine; ATTEND Internal Medicine
PROC: B54MZZA Ultrasonography of Right Upper Extremity Veins, Guidance (ICD-10-PCS; 2023-07-07)
PROC: 05HB33Z Insertion of Infusion Device into Right Basilic Vein, Percutaneous Approach (ICD-10-PCS; 2023-07-09)
PROC: 0J9N0ZZ Drainage of Right Lower Leg Subcutaneous Tissue and Fascia, Open Approach (ICD-10-PCS; principal; 2023-07-11 18:57)
DX: A41.9 Sepsis, unspecified organism (principal); I50.23 Acute on chronic systolic (congestive) heart failure; R65.21 Severe sepsis with septic shock; L03.115 Cellulitis of right lower limb; Z68.41 Body mass index [BMI] 40.0-44.9, adult; N39.0 Urinary tract infection, site not specified; J44.1 Chronic obstructive pulmonary disease with (acute) exacerbation; I47.10 Supraventricular tachycardia, unspecified; L02.415 Cutaneous abscess of right lower limb; E87.1 Hypo-osmolality and hyponatremia; E66.01 Morbid (severe) obesity due to excess calories; B18.2 Chronic viral hepatitis C; M17.0 Bilateral primary osteoarthritis of knee; F32.A Depression, unspecified; F17.210 Nicotine dependence, cigarettes, uncomplicated; F15.10 Other stimulant abuse, uncomplicated; I34.0 Nonrheumatic mitral (valve) insufficiency; R00.1 Bradycardia, unspecified; F41.9 Anxiety disorder, unspecified; E87.6 Hypokalemia; I48.91 Unspecified atrial fibrillation; K21.9 Gastro-esophageal reflux disease without esophagitis; G89.29 Other chronic pain; T38.0X5A Adverse effect of glucocorticoids and synthetic analogues, initial encounter; Y92.89 Other specified places as the place of occurrence of the external cause; Z85.41 Personal history of malignant neoplasm of cervix uteri; Z90.710 Acquired absence of both cervix and uterus; Z88.8 Allergy status to other drugs, medicaments and biological substances; Z71.6 Tobacco abuse counseling
CPT/HCPCS: 36410; 36415; 36600; 70450; 71045; 73701; 74177; 76937; 76942; 80048; 80053; 80202; 81001; 82803; 83605; 83735; 83880; 83930; 84100; 84145; 84443; 84484; 85008; 85018; 85025; 87040; 87070; 87075; 87077; 87081; 87186; 93005; 93306; 93971; 94640; 94760; 99285; A4333; A4349; A4615; A4618; A5200; A6212; A6250; A6258; A6402; A6446; A6449; A7000; C1751; C1758; G0378; J0282; J1265; J1720; J1885; J1940; J2060; J2250; J2270; J2543; J2704; J3010; J3370; J3475; J3480; J3490; J7030; J7040; J7120; J7512; P9045; Q9967

== ENCOUNTER 2023-09-28 16:24 | Inpatient (IN) | payer BC, MEDICAID ==
[~2023-09-28] VITALS: Ht 172.7 cm; Wt 87.5 kg
[~2023-09-28 16:24] MED LIST changes: -ALPR1TAB7 PO; +AMI200T PO; +AMOX-580 PO; +ASPI-1071 PO; +CARV6.253 PO; +DOCU100C40 PO; +EMPA10TA PO; +FURO40TA4 PO; -GUAI600T45 PO; +IPRA3AMP9 NEB; +LOSA25TA41 PO; -PARO30TA4 PO; +SPIR25TA PO
[2023-09-28] MEDS: acetaminophen 325mg tablet PO STA (16:38)
[2023-09-28] MEDS: CefTRIAXone 2gm/D5W 50ml BAG 50 ML IV ONE (16:40)
[2023-09-28 17:42] LABS: BASOPHILS % (AUTO) 0.4 % (0-1); EOSINOPHILS # (AUTO) 0.1 X10'3 (0-0.9); LYMPHOCYTES % (AUTO) 25.7 % (21-51); MEAN CORPUSCULAR HEMOGLOBIN 28.7 PG (27.0-31.0); MEAN CORPUSCULAR HGB CONC 33.5 g/dL (33.0-36.5); MEAN CORPUSCULAR VOLUME 85.6 FL (78-98); MEAN PLATELET VOLUME 6.9 FL (7.4-10.4); MONOCYTES # (AUTO) 0.7 X10'3 (0-0.9); MONOCYTES % (AUTO) 8.8 % (2-12); NEUTROPHILS % (AUTO) 64.1 % (42-75); PLATELET COUNT 423 X10'3 (140-440); RED BLOOD COUNT 3.85 X10'6 (4.20-5.60); RED CELL DISTRIBUTION WIDTH 16.1 % (11.5-14.5); WHITE BLOOD COUNT 7.8 X10'3 (4.5-11.0)
[2023-09-28 17:55] LABS: BILIRUBIN,URINE NEGATIVE (Neg); CLARITY,URINE CLEAR (Clear); COLOR,URINE YELLOW (Yellow); GLUCOSE, URINE NEGATIVE (Neg); KETONES,URINE NEGATIVE (Neg); LEUKOCYTE ESTERASE ,URINE SMALL (Neg); NITRITES, URINE NEGATIVE (Neg); OCCULT BLOOD,URINE NEGATIVE (Neg); PH,URINE 6.5 (4.8-8.0); PROTEIN,URINE NEGATIVE (Neg); UROBILINOGEN,URINE 0.2 E.U/dL (0.2-1.0)
[2023-09-28 18:04] LABS: UA COLLECTION TYPE STRAIGHT CATH
[2023-09-28 18:04] LABS: ALBUMIN 2.2 G/DL (3.4-5.0); ANION GAP 7 (8-16); BLOOD UREA NITROGEN 8 MG/DL (7-18); BUN/CREATININE RATIO 10.4 (10.0-20.0); CALCIUM 8.5 MG/DL (8.5-10.1); CHLORIDE 104 MMOL/L (99-107); CREATININE 0.77 MG/DL (0.40-0.90); GLUCOSE 96 MG/DL (70-104); MAGNESIUM 2.1 MG/DL (1.5-2.4); POTASSIUM 3.4 MMOL/L (3.5-5.1); PRO BRAIN NATRIURETIC PEPTIDE 943 PG/ML (0-125); SODIUM 139 MMOL/L (135-145); TOTAL CARBON DIOXIDE 28.5 MMOL/L (24-32); eCRCL 54 ML/MIN; eGFR 75 ML/MIN
[2023-09-28 18:05] LABS: RBC,URINE 0-2 /HPF (0-2); WBC,URINE 50-100 /HPF (0-4)
[2023-09-28 18:06] LABS: BACTERIA,URINE FEW /HPF (Neg); MUCUS STRANDS FEW /LPF (Neg); SQUAMOUS EPITHELIAL CELL,UR NONE SEEN /LPF (FEW)
[2023-09-28] MEDS ORDERED: ondansetron/PF 4mg/2ml inj IV PRN (21:15)
[2023-09-28] MEDS ORDERED: acetaminophen 325mg tablet PO PRN ×2 (21:15)
[2023-09-28] MEDS ORDERED: magnesium hydroxide 30ml (MOM) UD suspension PO PRN (21:15)
[2023-09-28] MEDS: enoxaparin 40mg/0.4ml syringe SUBCUT SCH (21:54)
[2023-09-28] MEDS: vancomycin/NS 1 GM ADD-VANTAGE 250 ML X 1 DOSE IV ONE (21:55)
[2023-09-28 23:00] VITALS: PULSE 69; RESP 22; O2SAT 95
[2023-09-28] MEDS ORDERED: ipratropium/albuterol 3ml nebule NEB PRN (23:05)
[2023-09-28] MEDS: amiodarone 200mg tablet PO SCH (23:36)
[2023-09-29 04:15] LABS: BASOPHILS % (AUTO) 0.7 % (0-1); EOSINOPHILS # (AUTO) 0.1 X10'3 (0-0.9); EOSINOPHILS % (AUTO) 1.3 % (0-6); HEMOGLOBIN 10.5 g/dl (12.0-16.0); LYMPHOCYTES # (AUTO) 2.2 X10'3 (1.1-4.8); LYMPHOCYTES % (AUTO) 33.4 % (21-51); MEAN CORPUSCULAR HEMOGLOBIN 28.9 PG (27.0-31.0); MEAN CORPUSCULAR HGB CONC 33.8 g/dL (33.0-36.5); MEAN CORPUSCULAR VOLUME 85.6 FL (78-98); MEAN PLATELET VOLUME 7.1 FL (7.4-10.4); MONOCYTES # (AUTO) 0.5 X10'3 (0-0.9); MONOCYTES % (AUTO) 7.8 % (2-12); NEUTROPHILS # (AUTO) 3.7 X10'3 (1.8-7.7); NEUTROPHILS % (AUTO) 56.8 % (42-75); PLATELET COUNT 372 X10'3 (140-440); RED BLOOD COUNT 3.62 X10'6 (4.20-5.60); RED CELL DISTRIBUTION WIDTH 16.1 % (11.5-14.5); WHITE BLOOD COUNT 6.6 X10'3 (4.5-11.0)
[2023-09-29 04:35] LABS: ALANINE AMINOTRANSFERASE 15 U/L (12-78); ALBUMIN/GLOBULIN RATIO 0.4 (1.1-1.5); ALKALINE PHOSPHATASE 61 IU/L (46-116); ANION GAP 7 (8-16); ASPARTATE AMINO TRANSFERASE 9 U/L (10-37); BILIRUBIN,TOTAL 0.4 MG/DL (0.1-1.0); BLOOD UREA NITROGEN 8 MG/DL (7-18); BUN/CREATININE RATIO 10.5 (10.0-20.0); CALCIUM 8.3 MG/DL (8.5-10.1); CHLORIDE 106 MMOL/L (99-107); CREATININE 0.76 MG/DL (0.40-0.90); GLUCOSE 89 MG/DL (70-104); POTASSIUM 3.3 MMOL/L (3.5-5.1); SODIUM 140 MMOL/L (135-145); TOTAL CARBON DIOXIDE 27.2 MMOL/L (24-32); TOTAL PROTEIN 6.9 G/DL (6.4-8.2); eCRCL 54 ML/MIN; eGFR 76 ML/MIN
[2023-09-29] MEDS: nicotine 7mg patch - 24hr TD SCH (08:00)
[2023-09-29] MEDS ORDERED: vancomycin/NS 1 GM ADD-VANTAGE 250 ML IV SCH (08:00)
[2023-09-29] MEDS: aspirin 81mg, enteric-coated 1 TAB TABLET.DR PO SCH (09:37)
[2023-09-29] MEDS: EMPAGLIFLOZIN 10 MG TABLET PO SCH (09:37)
[2023-09-29] MEDS: carvedilol 6.25mg tablet PO SCH (09:38)
[2023-09-29] MEDS: vancomycin/NS 1 GM ADD-VANTAGE 250 ML IV SCH (09:56)
[2023-09-29] MEDS: losartan 25mg tablet PO SCH (09:57)
[2023-09-29] MEDS: spironolactone 25 MG tablet PO SCH (09:58)
[2023-09-29] MEDS: morphine 2 MG/ML inj. syringe IV PRN (12:21)
[2023-09-29] MEDS: potassium Cl 20 mEq SR tablet PO STA (12:59)
[2023-09-29 13:25] VITALS: BP 128/71; PULSE 66; RESP 12; TEMP 97.2; O2SAT 98
[2023-09-29] MEDS: CefTRIAXone/D5W-Rocephin 1gm 50 ML IV SCH (15:52)
[2023-09-29] MEDS ORDERED: pneumococcal 23-VAL P-sac vacc 25 mcg/0.5ml vial IMVAC ONE (17:25)
[2023-09-29] MEDS ORDERED: FLU VACC QS2023-24(6MOS UP)/PF 60 MCG/0.5 ML SYRINGE IM ONE (17:25)
[2023-09-29 18:00] VITALS: BP 144/70; PULSE 69; RESP 18; TEMP 98; O2SAT 94
[2023-09-29 20:00] VITALS: RESP 18; O2SAT 94
[2023-09-29] MEDS: ringers solution, lacted 1,000 ML IV ONE (20:42)
[2023-09-29] MEDS ORDERED: LORazepam 2 mg/ml vial IV ONE (22:25)
[2023-09-30] VITALS (19 sets, daily range): BP systolic 128–156; BP diastolic 61–87; PULSE 59–70; RESP 11–20; TEMP 97–99.2; O2SAT 6–100
[2023-09-30] MEDS ORDERED: BUPIVAcaine 2.5mg/ml inj 50ml vial (contains preservative) ONE (08:15)
[2023-09-30] MEDS ORDERED: vancomycin 1,000mg inj ONE ×2 (08:16→10:12)
[2023-09-30 08:19] LABS: BASOPHILS # (AUTO) 0.1 X10'3 (0-0.2); BASOPHILS % (AUTO) 0.9 % (0-1); EOSINOPHILS # (AUTO) 0.1 X10'3 (0-0.9); EOSINOPHILS % (AUTO) 0.9 % (0-6); HEMATOCRIT 31.8 % (35.0-45.0); HEMOGLOBIN 10.5 g/dl (12.0-16.0); LYMPHOCYTES # (AUTO) 1.9 X10'3 (1.1-4.8); LYMPHOCYTES % (AUTO) 26.4 % (21-51); MEAN CORPUSCULAR HEMOGLOBIN 28.4 PG (27.0-31.0); MEAN CORPUSCULAR VOLUME 86.2 FL (78-98); MEAN PLATELET VOLUME 7.3 FL (7.4-10.4); MONOCYTES # (AUTO) 0.6 X10'3 (0-0.9); MONOCYTES % (AUTO) 8.5 % (2-12); NEUTROPHILS # (AUTO) 4.5 X10'3 (1.8-7.7); NEUTROPHILS % (AUTO) 63.3 % (42-75); PLATELET COUNT 352 X10'3 (140-440); RED BLOOD COUNT 3.69 X10'6 (4.20-5.60); RED CELL DISTRIBUTION WIDTH 16.1 % (11.5-14.5)
[2023-09-30] MEDS: VANCOMYCIN LEVEL IV ONE (08:30)
[2023-09-30 08:40] LABS: ALANINE AMINOTRANSFERASE 12 U/L (12-78); ALBUMIN/GLOBULIN RATIO 0.4 (1.1-1.5); ALKALINE PHOSPHATASE 65 IU/L (46-116); ANION GAP 7 (8-16); ASPARTATE AMINO TRANSFERASE 11 U/L (10-37); BILIRUBIN,TOTAL 0.4 MG/DL (0.1-1.0); BLOOD UREA NITROGEN 10 MG/DL (7-18); BUN/CREATININE RATIO 12.8 (10.0-20.0); CALCIUM 8.3 MG/DL (8.5-10.1); CHLORIDE 107 MMOL/L (99-107); CREATININE 0.78 MG/DL (0.40-0.90); GLUCOSE 91 MG/DL (70-104); POTASSIUM 4.1 MMOL/L (3.5-5.1); SODIUM 139 MMOL/L (135-145); TOTAL CARBON DIOXIDE 25.4 MMOL/L (24-32); TOTAL PROTEIN 6.9 G/DL (6.4-8.2); eCRCL 71 ML/MIN; eGFR 74 ML/MIN
[2023-09-30] MEDS: morphine 4 MG/ML inj SYRINge IV PRN (09:07)
[2023-09-30] MEDS ORDERED: sevoflurane 250ml liquid IH ONE (09:42)
[2023-09-30] MEDS ORDERED: fentaNYL/PF 50MCG/1 ML 2ML syringe ONE (09:53)
[2023-09-30] MEDS ORDERED: midazolam 1 mg/ML 2ml injection ONE (09:53)
[2023-09-30] MEDS ORDERED: LIDOcaine 2% (20mg/ml) 5ml vial ONE (10:13)
[2023-09-30] MEDS ORDERED: propofol inj 20 ML IV ONE (10:13)
[2023-09-30] MEDS ORDERED: morphine 2 MG/ML inj. syringe IV PRN (10:20)
[2023-09-30] MEDS ORDERED: enalaprilat dihydrate 2.5mg/2ml vial IV PRN (10:20)
[2023-09-30] MEDS ORDERED: labetalol 20mg/4ml (5mg/ml) syringe IV PRN (10:20)
[2023-09-30] MEDS ORDERED: meperidine/PF 25mg/ml syringe IV PRN ×2 (10:20)
[2023-09-30] MEDS ORDERED: morphine 4 MG/ML inj SYRINge IV PRN (10:20)
[2023-09-30] MEDS ORDERED: ondansetron/PF 4mg/2ml inj IV PRN (10:20)
[2023-09-30] MEDS ORDERED: proCHLORperazine 10 MG/2 ml inj IV PRN (10:20)
[2023-09-30] MEDS ORDERED: ondansetron/PF 4mg/2ml inj ONE (10:28)
[2023-09-30] MEDS: meperidine/PF 25mg/ml syringe IV PRN (10:43)
[2023-09-30] MEDS: HYDROcodone/acetaminophen 10/325mg tab PO PRN (10:49)
[2023-09-30] MEDS: ringers solution, lacted 1,000 ML IV SCH (11:30)
[2023-10-01 00:45] VITALS: BP 121/54; PULSE 65; RESP 16; TEMP 98.2; O2SAT 90
[2023-10-01 06:00] VITALS: BP 143/74; PULSE 66; RESP 20; TEMP 97.2; O2SAT 94
[2023-10-01 07:25] LABS: BASOPHILS # (AUTO) 0.1 X10'3 (0-0.2); BASOPHILS % (AUTO) 1.1 % (0-1); EOSINOPHILS # (AUTO) 0.1 X10'3 (0-0.9); EOSINOPHILS % (AUTO) 1.3 % (0-6); HEMATOCRIT 33.7 % (35.0-45.0); LYMPHOCYTES # (AUTO) 1.6 X10'3 (1.1-4.8); LYMPHOCYTES % (AUTO) 27.5 % (21-51); MEAN CORPUSCULAR HEMOGLOBIN 28.3 PG (27.0-31.0); MEAN CORPUSCULAR HGB CONC 32.7 g/dL (33.0-36.5); MEAN CORPUSCULAR VOLUME 86.6 FL (78-98); MONOCYTES # (AUTO) 0.5 X10'3 (0-0.9); MONOCYTES % (AUTO) 8.7 % (2-12); NEUTROPHILS # (AUTO) 3.5 X10'3 (1.8-7.7); NEUTROPHILS % (AUTO) 61.4 % (42-75); PLATELET COUNT 315 X10'3 (140-440); RED BLOOD COUNT 3.89 X10'6 (4.20-5.60); RED CELL DISTRIBUTION WIDTH 16.1 % (11.5-14.5); WHITE BLOOD COUNT 5.7 X10'3 (4.5-11.0)
[2023-10-01 07:48] LABS: ALANINE AMINOTRANSFERASE 12 U/L (12-78); ALBUMIN/GLOBULIN RATIO 0.4 (1.1-1.5); ALKALINE PHOSPHATASE 65 IU/L (46-116); ANION GAP 8 (8-16); ASPARTATE AMINO TRANSFERASE 14 U/L (10-37); BILIRUBIN,TOTAL 0.3 MG/DL (0.1-1.0); BLOOD UREA NITROGEN 10 MG/DL (7-18); BUN/CREATININE RATIO 13.2 (10.0-20.0); CALCIUM 8.4 MG/DL (8.5-10.1); CHLORIDE 105 MMOL/L (99-107); CREATININE 0.76 MG/DL (0.40-0.90); GLUCOSE 99 MG/DL (70-104); POTASSIUM 4.4 MMOL/L (3.5-5.1); SODIUM 138 MMOL/L (135-145); TOTAL CARBON DIOXIDE 25.4 MMOL/L (24-32); TOTAL PROTEIN 6.9 G/DL (6.4-8.2); eCRCL 72 ML/MIN; eGFR 76 ML/MIN
[2023-10-01 08:00] VITALS: RESP 18; O2SAT 92
[2023-10-01] MEDS: HYDROcodone/acetaminophen 5mg/325mg tablet PO PRN (08:58)
[2023-10-01 11:00] VITALS: BP 131/59; PULSE 65; RESP 20; TEMP 98; O2SAT 95
[2023-10-01] MEDS ORDERED: LINE600T14 PO (14:18)
[2023-10-01] MEDS: linezolid 600mg tablet PO SCH (15:56)
[2023-10-01 16:00] VITALS: BP 141/71; PULSE 65; RESP 18; TEMP 97.2; O2SAT 95
[2023-10-01 16:32] VITALS: PULSE 65; RESP 17; O2SAT 96
== END 2023-10-01 17:00 | disposition home health service (06) | DRG 570 ==
LOC: ER 16:24 → ED HOLD 21:18 → PCU 3S 09-29 13:26
PROVIDERS: ADMIT Internal Medicine; ATTEND Family Medicine
PROC: 0JBP0ZZ Excision of Left Lower Leg Subcutaneous Tissue and Fascia, Open Approach (ICD-10-PCS; principal; 2023-09-30 09:42)
DX: L02.416 Cutaneous abscess of left lower limb (principal); E43 Unspecified severe protein-calorie malnutrition; I50.22 Chronic systolic (congestive) heart failure; L03.116 Cellulitis of left lower limb; K21.9 Gastro-esophageal reflux disease without esophagitis; J44.9 Chronic obstructive pulmonary disease, unspecified; F10.90 Alcohol use, unspecified, uncomplicated; G89.29 Other chronic pain; M54.9 Dorsalgia, unspecified; F41.9 Anxiety disorder, unspecified; Z79.82 Long term (current) use of aspirin; Z79.899 Other long term (current) drug therapy; Z85.41 Personal history of malignant neoplasm of cervix uteri; Z90.710 Acquired absence of both cervix and uterus; Z88.8 Allergy status to other drugs, medicaments and biological substances; Z87.891 Personal history of nicotine dependence; Z68.29 Body mass index [BMI] 29.0-29.9, adult
CPT/HCPCS: 36415; 71045; 73700; 80048; 80053; 80202; 81001; 82948; 83605; 83735; 83880; 84145; 84484; 85025; 87040; 87070; 87075; 87077; 87088; 87186; 87502; 87503; 90686; 90732; 93005; 93971; 94760; 97161; 97530; 99285; A4353; A4615; A4618; A6223; A6253; A6258; A6402; A6446; A6449; A7000; G0378; J0696; J1650; J2175; J2250; J2270; J2405; J2704; J3010; J3370; J3490; J7040; J7120